=== PATIENT | female | born 1965 | race Caucasian/White ===

== ENCOUNTER 2022-11-19 07:06 | Outpatient (CLI) | payer BC, SELFPAY ==
[2022-11-19 07:44] LABS: Alanine Aminotransferase 37 U/L (6-35); Albumin Level 4.5 g/dL (3.5-5.1); Alkaline Phosphatase 61 U/L (38-126); Anion Gap 8 mmol/L (8-16); Aspartate Amino Transferase 30 U/L (14-36); Bilirubin,Total 1.2 mg/dL (0.2-1.3); Blood Urea Nitrogen 13 mg/dL (7-17); Calcium 9.3 mg/dL (8.4-10.2); Carbon Dioxide 27 mmol/L (22-30); Chloride 105 mmol/L (98-107); Cholesterol 254 mg/dL (0-200); Estimated Glomerular Filt Rate > 60; Glucose 112 mg/dL (65-110); HDL Direct 55 mg/dL; Potassium 3.6 mmol/L (3.4-5.0); Sodium 140 mmol/L (137-145); Triglycerides 181 mg/dL (<150)
[2022-11-19 07:49] LABS: Hematocrit 40.9 % (37.0-47.0); Hemoglobin 13.7 g/dL (12.0-15.0); Mean Corpuscular HGB Conc 33.5 g/dl (32-36); Mean Corpuscular Hemoglobin 29.7 pg (26-34); Mean Corpuscular Volume 88.7 fl (80-100); Mean Platelet Volume 9.8 fl (7.4-10.4); Platelet Count Result 274 k/mm3 (150-375); Red Blood Count 4.61 M/mm3 (4.2-5.4); White Blood Count 5.2 K/mm3 (4.5-10.0)
[2022-11-19 07:55] LABS: LDL Cholesterol Direct 155 mg/dL
[2022-11-19 08:14] LABS: Free T4 Free Thyroxine 0.95 ng/mL (0.78-2.19)
== END 2022-11-19 07:07 | disposition home or self-care (01) ==
PROVIDERS: PCP Family Medicine; Visit Provider Family Medicine
DX: E03.9 Hypothyroidism, unspecified (principal); E78.5 Hyperlipidemia, unspecified; Z13.220 Encounter for screening for lipoid disorders; I10 Essential (primary) hypertension
CPT/HCPCS: 36415; 80048; 80061; 80076; 84439; 84443; 85027

== ENCOUNTER → 2023-01-17 08:34 | Outpatient (CLI) | payer BC, SELFPAY ==
--- NOTE | ~2023-01-17 | XR_ITS ---
EXAMINATION: XR hip LT 2V w AP pelvis DATE: 01/17/2023 08:55 INDICATION: Left hip pain. TECHNIQUE: An anteroposterior view of the pelvis and 2 views of left hip were obtained. COMPARISON: None. FINDINGS: There is a total right hip arthroplasty in near-anatomic alignment. No periprosthetic lucen cy to suggest loosening or infection. No fracture. There is moderate left hip osteoarthritis. There i s moderate lumbar spondylosis. IMPRESSION: 1. Moderate left hip osteoarthritis. 2. Total right hip arthroplasty in near-anatomic alignment. Reviewed, dictated and finalized at location A.
== END ==
PROVIDERS: PCP Family Medicine; Visit Provider Nurse Practitioner Family
DX: M16.12 Unilateral primary osteoarthritis, left hip (principal)
CPT/HCPCS: 73502

== ENCOUNTER 2023-01-20 02:40 | Day surgery (SDC) | payer BC, SELFPAY ==
[2023-01-04 13:51] VITALS: BMI 43.9
[2023-01-20 06:25] VITALS: BP 137/80; PULSE 67; RESP 20; TEMP 36.3; O2SAT 98; BMI 41.8
[2023-01-20] MEDS: LACTATED RINGERS 1,000 ML 150 ML IV CONT (06:31)
[2023-01-20 07:59] VITALS: BP 123/77; PULSE 72; RESP 16; O2SAT 96
--- NOTE | 2023-01-20 08:01 | PM.HPGS ---
History of Present Illness History of Present Illness Consent: Risks, benefits, and alternatives have been discussed and questions answered. Patient agrees to proceed with procedure. Chief complaint: neoplasm screening Narrative: Shruti Murcia is a 57 year old female Presents for screening colonoscopy. Patient has current weight appetite bowel movements appear normal. Patient desires neoplasia screening. Family history noncontributory. Review of Systems Review of Systems: Review of systems noncontributory. [facility] Past Medical History Medical History (Updated 01/20/23 @ 08:02 by Eliecer Garsia MD) Abnormal mouth sensation Acute arthritis BMI 40.0-44.9, adult Essential hypertension Hyperlipidemia Hypertension Hypothyroidism (acquired) Sacroiliitis Sleep apnea treated with continuous positive airway pressure (CPAP) Thyroid disorder Surgical History Surgical History H/O: hysterectomy History of hip surgery Hx of shoulder surgery S/P hernia surgery Family History Family History Son ADD (attention deficit disorder) Father Acute myocardial infarction Carcinoma of colon Hypertension Heart disease Colon cancer Acute alcohol abuse Mother Lung cancer COPD (chronic obstructive pulmonary disease) Thyroid condition Hypertension Sibling Lung cancer Social History Social History Smoking status: Never smoker Alcohol intake: current Alcohol use details: occasional Substance use: never Substance use type: does not use Lack of Transportation: No Lack of Food: Never True Current Housing: I Have Housing Concerned About Future Housing: No Difficulty Paying Gas/Electric Bills: No Difficulty Paying for Meds: No Currently Unemployed: No Education: Decline to Answer Difficulty w/ Childcare or Family Care: No Living arrangements: with family Spiritual care concerns: No Meds Home Medications and Allergies Home Medications Medication Instructions Recorded Confirmed Type cyclobenzaprine 10 mg tablet 10 mg PO TID 08/17/22 01/04/23 History atorvastatin 10 mg tablet 10 mg PO DAILY 11/15/22 01/04/23 History ibuprofen 600 mg tablet 600 mg PO Q6H PRN Pain 11/15/22 01/04/23 History levothyroxine 50 mcg tablet 50 mcg PO DAILY 11/15/22 01/04/23 History lidocaine 5 % topical patch 1 patch topical DAILY 11/15/22 01/04/23 History lisinopril 20 1 tablet PO DAILY #90 tabs 11/15/22 01/04/23 Rx mg-hydrochlorothiazide 12.5 mg tablet omega-3 fatty acids 1,000 mg 1,000 mg PO DAILY 11/15/22 01/04/23 History capsule turmeric root extract 500 mg 500 mg PO DAILY 11/15/22 01/04/23 History capsule Allergies Allergy/AdvReac Type Severity Reaction Status Date / Time Sulfa (Sulfonamide Allergy Mild Unknown Verified 01/20/23 06:22 Antibiotics) IV Dye Allergy Mild Unknown Uncoded 01/20/23 06:22 Vital Signs Vital Signs - 24 hr 01/20/23 06:25 Temperature 97.4 F L Pulse Rate 67 Respiratory Rate 20 Blood Pressure 137/80 Pulse Oximetry 98 Oxygen Delivery Room Air Exam Narrative: Physical exam reveals patient to be alert. Vital signs stable. HEENT exam is unremarkable. Patient is anicteric. Lungs are clear to auscultation and percussion. Heart is without murmur or extra sounds. Abdomen bowel sounds are present soft nontender with no organomegaly. Digital external rectal exam is normal. Assessment and Plan Assessment and plan (1) Encounter for screening colonoscopy: Code(s): Z12.11 - Encounter for screening for malignant neoplasm of colon Status: Acute Assessment and Plan: Patient presents today for screening colonoscopy. Further recommendations will be given after endoscopy.
[2023-01-20 08:09] VITALS: BP 132/66; PULSE 70; RESP 18; O2SAT 97
[2023-01-20 08:19] VITALS: BP 138/78; PULSE 58; RESP 18; O2SAT 97
== END 2023-01-20 08:31 | disposition home or self-care (01) ==
PROVIDERS: PCP Family Medicine; Visit Provider Internal Medicine Gastroenterology
PROC: 0DJD8ZZ Inspection of Lower Intestinal Tract, Via Natural or Artificial Opening Endoscopic (ICD-10-PCS; CPT 45378; principal; 2023-01-20 07:30)
DX: Z12.11 Encounter for screening for malignant neoplasm of colon (principal); D12.4 Benign neoplasm of descending colon; D12.5 Benign neoplasm of sigmoid colon; K63.5 Polyp of colon; K64.8 Other hemorrhoids; I10 Essential (primary) hypertension; E78.5 Hyperlipidemia, unspecified; E03.9 Hypothyroidism, unspecified; G47.33 Obstructive sleep apnea (adult) (pediatric)
CPT/HCPCS: 45385; 88305; J2704; J7120

== ENCOUNTER 2023-03-28 13:58 | Outpatient (CLI) | payer BC, SELFPAY ==
--- NOTE | ~2023-03-28 | XR_ITS ---
EXAMINATION: XR chest 2V 03/28/2023 14:09 INDICATION: Cough PROCEDURE: 2 view chest COMPARISON: No prior studies for comparison. FINDINGS: The lungs are clear. The cardiomediastinal silhouette is within normal limits. There are no pleural effusions. There is no pneumothorax suspected. IMPRESSION: 1: NO ACUTE CARDIOPULMONARY DISEASE. Reviewed, dictated and finalized at location B.
== END 2023-03-28 13:59 | disposition home or self-care (01) ==
LOC: ANHIMG 14:00
PROVIDERS: PCP Family Medicine; Visit Provider Nurse Practitioner Family
DX: J06.9 Acute upper respiratory infection, unspecified (principal); R05.9 Cough, unspecified
CPT/HCPCS: 71046

== ENCOUNTER 2023-05-24 07:45 | Outpatient (CLI) | payer BC, SELFPAY ==
[2023-05-24 09:58] LABS: Free T4 Free Thyroxine 1.27 ng/mL (0.78-2.19)
== END 2023-05-24 07:46 | disposition home or self-care (01) ==
LOC: ANHLAB 07:46
PROVIDERS: PCP Family Medicine; Visit Provider Family Medicine
DX: E03.9 Hypothyroidism, unspecified (principal); M35.01 Sjogren syndrome with keratoconjunctivitis
CPT/HCPCS: 36415; 84439; 84443; 86038

== ENCOUNTER 2023-09-22 12:33 | Outpatient (CLI) | payer BC, SELFPAY ==
--- NOTE | ~2023-09-22 | MM_ITS ---
EXAMINATION: MM screening carmelo BI w vidya HISTORY: Screening mammogram TECHNIQUE: Craniocaudal and mediolateral oblique 3-D tomosynthesis images were obtained and synthetic 2-D images were generated. CAD analysis was submitted and interpreted. COMPARISON: No prior mammogram is available for comparison at this institution. BREAST PARENCHYMAL COMPOSITION: There are scattered areas of fibroglandular density. FINDINGS: There is no evidence of suspicious mass, calcification, or architectural distortion to sugg est malignancy in either breast. There has been no suspicious interval change. IMPRESSION: 1. No mammographic evidence of malignancy. 2. Recommend routine screening mammography in one year. BI-RADS Category 1: Negative Reviewed, dictated and finalized at location A. SERVICE TECHNICIAN
== END 2023-09-22 12:34 ==
LOC: MICIMG 12:34
PROVIDERS: PCP Family Medicine; Visit Provider Family Medicine
DX: Z12.31 Encounter for screening mammogram for malignant neoplasm of breast (principal)
CPT/HCPCS: 77063; 77067

== ENCOUNTER 2023-10-28 06:35 | Outpatient (CLI) | payer BC, SELFPAY ==
--- NOTE | ~2023-10-28 | MR_ITS ---
EXAMINATION: MR lumbar spine wo con DATE: 10/28/2023 07:28 INDICATION: Sided low back pain at the sacroiliac joint. TECHNIQUE: Magnetic resonance imaging (MRI) of the lumbar spine was performed without intravenous con trast. Sequences included sagittal T2-weighted FSE, sagittal T2-weighted FS FSE, sagittal T1-weighted FSE, and axial T2-weighted FSE. COMPARISON: None FINDINGS: 8 mm lumbar levocurvature. 3 mm anterolisthesis L4 on L5 and 4 mm retrolisthesis L4 on L5. Mild likel y physiologic anterior wedging at T12 and L1. There are a few scattered small Schmorl's nodes in the lower thoracic and upper lumbar spine. T1 and T2 hyperintense hemangioma at L2. Marrow signal is othe rwise normal. Mild disc height loss at T11-T12 through L5-S1 relatively sparing L2-L3. The conus medu llaris terminates at L2. There is normal signal in the caudal spinal cord. 1.8 cm right renal cyst. P aravertebral soft tissues are otherwise unremarkable. The following disc levels are specifically disc ussed: T12-L1: The disc does not extend beyond the endplate margin. There is moderate bilateral facet joint osteoarthritis. There is no neural foraminal stenosis. There is no central canal stenosis. L1-L2: Disc is mildly bulging. There is moderate bilateral facet joint osteoarthritis. There is mild bilateral neural foraminal stenosis. There is minimal central canal stenosis. L2-L3: The disc does not extend beyond the endplate margin. There is mild to moderate bilateral facet joint osteoarthritis. There is no neural foraminal stenosis. There is no central canal stenosis. L3-L4: Disc is mildly bulging. There is moderate right and moderate to severe left facet joint osteoa rthritis. There is mild to moderate bilateral neural foraminal stenosis. There is mild central canal stenosis. L4-L5: Disc is bulging. There is severe bilateral facet joint osteoarthritis. There is moderate left and mild to moderate right neural foraminal stenosis. There is moderate central canal stenosis. L5-S1: Disc is bulging with annular fissure. There is moderate to severe left and mild to moderate ri ght facet joint osteoarthritis. There is moderate left and mild to moderate right neural foraminal st enosis. There is no central canal stenosis. IMPRESSION: 1. Mild to moderate lumbar and lower thoracic spondylosis. Reviewed, dictated and finalized at location B.
== END 2023-10-28 06:36 | disposition home or self-care (01) ==
PROVIDERS: PCP Family Medicine; Visit Provider Nurse Practitioner Family
DX: M47.896 Other spondylosis, lumbar region (principal); M47.894 Other spondylosis, thoracic region
CPT/HCPCS: 72148

== ENCOUNTER 2023-11-10 11:14 | Outpatient (CLI) | payer BC, SELFPAY ==
--- NOTE | ~2023-11-10 | CT_ITS ---
Non-contrast CT scan of the Pelvis Clinical indication: Sacroiliitis Technique: 2.5 mm axial scans were obtained through the pelvis without intravenous or oral contrast. Dose reduction technique was used on this scan by utilizing automated exposure control and iterative reconstruction technique. The dose-length product (DLP) was 971.12 mGy-cm. Findings: There is mild to moderate osteoarthritic change of the SI joints bilaterally. No erosive ch sergio or sclerotic change identified. Right hip arthroplasty in place, without evidence of hardware co mplication. There is moderate osteoarthritic change of the left hip joint, with chondral thinning pro bably present and mild bony productive changes. Visualized bowel loops are unremarkable. No pelvic lymphadenopathy seen. Urinary bladder grossly unre markable. No pelvic soft tissue mass seen. Visualized musculature unremarkable. Impression: No evidence for erosive arthropathy involving the SI joints. No erosive change or sclerotic change se en. Consider MR for more sensitive evaluation for very early changes of sacroiliitis, as indicated. Mild to moderate osteoarthritic change of the SI joints and left hip joint. Right hip arthroplasty in place. Reviewed, dictated and finalized at location . Impression: No evidence for erosive arthropathy involving the SI joints. No erosive change or sclerotic change seen. Consider MR for more sensitive evaluation for very ea rly changes of sacroiliitis, as indicated. Mild to moderate osteoarthritic change of the SI joints and left hip joint. Right hip arthroplasty in place.
== END 2023-11-10 11:15 | disposition home or self-care (01) ==
PROVIDERS: PCP Family Medicine; Visit Provider Physician Assistant
DX: M46.1 Sacroiliitis, not elsewhere classified (principal); Z96.641 Presence of right artificial hip joint
CPT/HCPCS: 72192

== ENCOUNTER 2023-12-01 07:00 | Outpatient (CLI) | payer BC, SELFPAY ==
[2023-12-01 07:32] LABS: Hematocrit 43.8 % (37.0-47.0); Hemoglobin 14.7 g/dL (12.0-15.0); Mean Corpuscular HGB Conc 33.6 g/dl (32-36); Mean Corpuscular Hemoglobin 29.5 pg (26-34); Mean Platelet Volume 9.7 fl (7.4-10.4); Platelet Count Result 279 k/mm3 (150-375); Red Blood Count 4.98 M/mm3 (4.2-5.4); Red Cell Distribution Width 12.7 % (11.5-14.5)
[2023-12-01 07:47] LABS: Alanine Aminotransferase 20 U/L (6-35); Albumin Level 4.5 g/dL (3.5-5.1); Alkaline Phosphatase 75 U/L (38-126); Anion Gap 9 mmol/L (4-12); Aspartate Amino Transferase 22 U/L (14-36); Bilirubin,Total 1.7 mg/dL (0.2-1.3); Blood Urea Nitrogen 14 mg/dL (7-17); Calcium 9.5 mg/dL (8.4-10.2); Carbon Dioxide 24 mmol/L (22-30); Chloride 105 mmol/L (98-107); Estimated Glomerular Filt Rate > 60; Glucose 112 mg/dL (65-110); Potassium 3.5 mmol/L (3.4-5.0); Sodium 138 mmol/L (137-145)
[2023-12-01 07:58] LABS: Erythrocyte Sedimentation Rate 15 mm/hr (0-20)
[2023-12-01 08:17] LABS: Free T4 Free Thyroxine 1.34 ng/mL (0.78-2.19)
[2023-12-01 08:46] LABS: HAV RESULT Negative (Negative); Hepatitis B Core IgM Result Negative (Negative); Hepatitis B Surface Antigen Negative (Negative)
[2023-12-01 08:52] LABS: Hepatitis C Virus Antibody Negative (Negative)
[2023-12-02 16:24] LABS: CRP, High Sensitivity 5.2 mg/L
== END 2023-12-01 07:01 | disposition home or self-care (01) ==
PROVIDERS: PCP Family Medicine; Visit Provider Family Medicine
DX: E03.9 Hypothyroidism, unspecified (principal); I10 Essential (primary) hypertension; R74.8 Abnormal levels of other serum enzymes; M46.1 Sacroiliitis, not elsewhere classified
CPT/HCPCS: 36415; 80048; 80074; 80076; 84439; 84443; 85027; 85652; 86141

== ENCOUNTER 2024-02-22 16:31 | Emergency (ER) | payer BC, SELFPAY ==
--- NOTE | ~2024-02-22 | XR_ITS ---
XR chest 2V Ordering provider: Aimee Bailey PA-C History: 58 years Female with . shortness of breath . Comparison: March 28, 2023 FINDINGS: MEDIASTINUM: The cardiac silhouette is not enlarged. LUNGS: No infiltrates, effusions or pneumothorax. OTHER: No free air under the diaphragm. Degenerative changes of the spine. IMPRESSION: No acute cardiopulmonary pathology. Reviewed, dictated and finalized at location A.
[2024-02-22 16:34] VITALS: BP 168/83; PULSE 94; RESP 18; TEMP 37; O2SAT 97
--- NOTE | 2024-02-22 17:35 | ECG_ITS ---
Test Date: 2024-02-22 17:56:53 Measurements Intervals [place] Rate: 80 P: 69 [place]: 173 QRS: 49 QRSD: 98 T: 56 QT: 381 QTc: 441 Interpretive Statements SINUS RHYTHM NORMAL ELECTROCARDIOGRAM No previous ECG available for comparison Electronically Signed On 02-23-2024 07:12:00 CDT by Jorge Marques M.D.
--- NOTE | 2024-02-22 17:36 | ED.URI ---
HPI - URI/Sore Throat General Chief Complaint: Upper Respiratory Infection Stated Complaint: COVID+, possible pneumonia Time Seen by Provider: 02/22/24 17:28 History of Present Illness HPI Narrative: 58-year-old female with a history of hypertension, hyperlipidemia and YUN presents to emergency department for shallow breathing. Patient states she began having URI symptoms 5 days ago. States she went to urgent care 3 days ago and tested positive for influenza and COVID. She was sent home with Paxlovid, steroids, Tessalon Perles and [place]. Patient states her symptoms improved a day later, however have worsened again. She states she contacted her PCP's office and was advised to come to the ED for further evaluation. She states she feels bubbling in her chest when she breathes and is reporting a productive cough. She states she feels like she is not taking a full deep breath. She denies chest pain, lower extremity edema, abdominal pain. She is endorsing some nausea, headache and minimal diarrhea. Denies vomiting and known fever. denies prior history of VTE, recent surgeries or hospitalizations. Denies smoking or history of COPD or asthma. Related Data Home Medications Medication Instructions Recorded Confirmed atorvastatin 10 mg tablet 10 mg PO DAILY 11/15/22 11/21/23 lidocaine 5 % topical patch 1 patch topical DAILY PRN 03/17/23 11/21/23 Allergies Allergy/AdvReac Type Severity Reaction Status Date / Time Iodinated Contrast Media Allergy Mild Rash Verified 02/22/24 16:32 Sulfa (Sulfonamide Allergy Mild Unknown Verified 02/22/24 16:32 Antibiotics) Review of Systems Review of Systems: All systems reviewed & are unremarkable except as noted in HPI and below [facility] Past Medical History Medical History Abnormal mouth sensation Acute arthritis BMI 38.0-38.9,adult BMI 40.0-44.9, adult Essential hypertension Hyperlipidemia Hypertension Hypothyroidism (acquired) Sacroiliitis Sleep apnea treated with continuous positive airway pressure (CPAP) Thyroid disorder Surgical History Surgical History H/O: hysterectomy History of hip surgery Hx of shoulder surgery S/P hernia surgery Family History Family History Son ADD (attention deficit disorder) Father Acute myocardial infarction Carcinoma of colon Hypertension Heart disease Colon cancer Acute alcohol abuse Mother Lung cancer COPD (chronic obstructive pulmonary disease) Thyroid condition Hypertension Sibling Lung cancer Sibling Malignant neoplasm of prostate Social History Social History Smoking status: Never smoker Second hand tobacco smoke exposure: Yes Alcohol intake: current Alcohol use details: occasional; 1 drink per month Substance use: never Substance use type: does not use Do You Feel Safe in your Home?: Yes Lack of Transportation: No Lack of Food: Never True Current Housing: I Have Housing Concerned About Future Housing: No Difficulty Paying Gas/Electric Bills: No Difficulty Paying for Meds: No Currently Unemployed: No Education: Associate Degree Difficulty w/ Childcare or Family Care: No Living arrangements: with family Occupation/Education: occupation 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 Gender identity (if verbalized by the patient): Female Spiritual care concerns: No Exam Narrative: GENERAL: Well-appearing, well-nourished, and in no acute distress. HEAD: Normocephalic, atraumatic. EYES: PERRLA and EOMI. ENT: Nares clear, no rhinorrhea or epistaxis. Mucous membranes moist. NECK: Supple. CHEST: Clear to auscultation. No respiratory distress. Satting 97% on room air in no respir
[2024-02-22 17:59] LABS: Basophils Percent Auto 0.2 % (0.2-1.2); Eosinophils Percent Auto 0.2 % (0-4.4); Hematocrit 42.3 % (37.0-47.0); Hemoglobin 14.1 g/dL (12.0-15.0); Immature Granulocyte Absolute 0.05 K/mm3 (0.00-0.031); Immature Granulocyte Percent A 0.3 % (0-0.5); Lymphocytes Absolute Auto 1.66 K/mm3 (0.9-3.2); Lymphocytes Percent Auto 9.9 % (18.3-44.2); Mean Corpuscular HGB Conc 33.3 g/dl (32-36); Mean Corpuscular Hemoglobin 29.4 pg (26-34); Mean Corpuscular Volume 88.3 fl (80-100); Mean Platelet Volume 9.5 fl (7.4-10.4); Monocytes Absolute Auto 0.9 K/mm3 (0.1-0.6); Monocytes Percent Auto 5.2 % (2.6-8.5); Neutrophils Absolute Auto 14.2 K/mm3 (1.3-6.7); Neutrophils Percent Auto 84.2 % (45.5-73.1); Platelet Count Result 262 k/mm3 (150-375); Red Blood Count 4.79 M/mm3 (4.2-5.4); Red Cell Distribution Width 12.9 % (11.5-14.5); White Blood Count 16.8 K/mm3 (4.5-10.0)
[2024-02-22 18:02] VITALS: BP 194/101; PULSE 86; RESP 16; O2SAT 96
[2024-02-22 18:09] LABS: Alanine Aminotransferase 20 U/L (6-35); Albumin Level 4.2 g/dL (3.5-5.1); Alkaline Phosphatase 68 U/L (38-126); Anion Gap 12 mmol/L (4-12); Aspartate Amino Transferase 20 U/L (14-36); Bilirubin,Total 0.9 mg/dL (0.2-1.3); Blood Urea Nitrogen 13 mg/dL (7-17); Calcium 8.9 mg/dL (8.4-10.2); Carbon Dioxide 28 mmol/L (22-30); Chloride 101 mmol/L (98-107); Estimated CRCL calculation 98 ml/min; Estimated Glomerular Filt Rate > 60; Glucose 107 mg/dL (65-110); Magnesium 1.9 mg/dL (1.6-2.3); Potassium 3.5 mmol/L (3.4-5.0); Sodium 141 mmol/L (137-145)
[2024-02-22 18:20] LABS: NT Pro B Type Natriuretic Pept 430 pg/mL (19.9-100); Prothrombin Time 13.3 Seconds (11.1-14.7); Troponin I < 0.012 ng/mL (0.000-0.034)
[2024-02-22 18:21] LABS: Partial Thromboplastin Time 25.2 Seconds (22.3-36.8)
[2024-02-22 18:30] VITALS: BP 190/99; PULSE 80; RESP 16; O2SAT 96
[2024-02-22 18:34] LABS: D Dimer 0.31 ug/mL (<0.48)
[2024-02-22 19:09] LABS: Add Urine Microscopic? YES; Appearance Urine Clear (Clear); Bacteria Urine None Seen /hpf; Bilirubin Urine Negative (Negative); Blood Urine Negative (Negative); Color Urine Yellow (Yellow); Glucose Urine UA Negative (Negative); Ketones Urine Negative (Negative); Leukocyte Esterase Ur Trace LEU/UL (Negative); Nitrate Urine Negative (Negative); Non Pathogenic Casts 0-2; Protein Urine Negative (Negative); RBC Urine 0-2 /hpf (0-2); Specific Grav Ur 1.005 (1.001-1.035); Squamous Epithelial Cell Urine None Seen /hpf (Few); Urobilinogen Urine 0.2 mg/dL (<2.0); WBC Urine 0-5 /hpf (0-3); pH Urine 7.5 (5.0-9.0)
[2024-02-22 19:54] VITALS: BP 186/72; PULSE 87; RESP 16; O2SAT 96
== END 2024-02-22 20:22 | disposition home or self-care (01) ==
PROVIDERS: Emergency Provider Physician Assistant; PCP Family Medicine
DX: U07.1 COVID-19 (principal); J11.1 Influenza due to unidentified influenza virus with other respiratory manifestations; I10 Essential (primary) hypertension; E78.5 Hyperlipidemia, unspecified; E03.9 Hypothyroidism, unspecified; G47.30 Sleep apnea, unspecified; Z90.710 Acquired absence of both cervix and uterus; Z77.22 Contact with and (suspected) exposure to environmental tobacco smoke (acute) (chronic)
CPT/HCPCS: 36415; 71046; 80053; 81001; 83735; 83880; 84484; 85025; 85380; 85610; 85730; 93005; 99284

== ENCOUNTER 2024-05-14 08:50 | Outpatient (CLI) | payer BC, SELFPAY ==
--- NOTE | ~2024-05-14 | XR_ITS ---
Clinical Indication: Shortness of breath PA and lateral views of the chest: Comparison: 02/22/2024 Findings: The lungs are clear, without evidence of focal consolidation or pleural effusion. Cardiome diastinal silhouette is within normal limits. Bones and soft tissues are unremarkable. Impression: Normal chest. Reviewed, dictated and finalized at location . Impression: Normal chest.
[2024-05-14 09:29] LABS: Hematocrit 42.2 % (37.0-47.0); Hemoglobin 13.6 g/dL (12.0-15.0); Mean Corpuscular HGB Conc 32.2 g/dl (32-36); Mean Corpuscular Hemoglobin 28.8 pg (26-34); Mean Corpuscular Volume 89.4 fl (80-100); Mean Platelet Volume 9.5 fl (7.4-10.4); Platelet Count Result 274 k/mm3 (150-375); Red Blood Count 4.72 M/mm3 (4.2-5.4); Red Cell Distribution Width 12.8 % (11.5-14.5); White Blood Count 5.9 K/mm3 (4.5-10.0)
[2024-05-14 09:44] LABS: Alanine Aminotransferase 16 U/L (6-35); Albumin Level 4.1 g/dL (3.5-5.1); Alkaline Phosphatase 63 U/L (38-126); Anion Gap 6 mmol/L (4-12); Aspartate Amino Transferase 19 U/L (14-36); Bilirubin,Total 0.7 mg/dL (0.2-1.3); Blood Urea Nitrogen 12 mg/dL (7-17); Calcium 9.1 mg/dL (8.4-10.2); Carbon Dioxide 30 mmol/L (22-30); Chloride 105 mmol/L (98-107); Cholesterol 262 mg/dL (0-200); Estimated Glomerular Filt Rate > 60; Glucose 101 mg/dL (65-110); HDL Direct 63 mg/dL; Potassium 3.8 mmol/L (3.4-5.0); Sodium 141 mmol/L (137-145); Triglycerides 133 mg/dL (<150)
[2024-05-14 10:02] LABS: LDL Cholesterol Direct 150 mg/dL
[2024-05-14 10:35] LABS: Thyroid Stimulating Hormone 0.566 uIU/mL (0.465-4.680)
== END 2024-05-14 08:51 | disposition home or self-care (01) ==
PROVIDERS: PCP Family Medicine; Visit Provider Nurse Practitioner Family
DX: R06.02 Shortness of breath (principal); E03.9 Hypothyroidism, unspecified; E78.5 Hyperlipidemia, unspecified; F41.9 Anxiety disorder, unspecified; I10 Essential (primary) hypertension; R74.8 Abnormal levels of other serum enzymes; E55.9 Vitamin D deficiency, unspecified
CPT/HCPCS: 36415; 71046; 80053; 80061; 82306; 84439; 84443; 85027

== ENCOUNTER 2024-05-28 14:30 | Outpatient (CLI) | payer BC, SELFPAY | END 2024-05-28 14:31 | disposition home or self-care (01) | LOC: ANHPFT 14:31 | PROVIDERS: PCP Family Medicine; Visit Provider Family Medicine | DX: R06.02 Shortness of breath (principal) | CPT/HCPCS: 94060; 94726; 94729 ==

== ENCOUNTER 2024-07-09 09:00 | Outpatient (RCR) | payer BC, SELFPAY ==
--- NOTE | 2024-06-06 12:11 | OPREHPOC ---
Outpatient Therapy Plan of Care This is a Multidisciplinary Plan of Care that may contain components documented by all disciplines (PT, OT, and ST.) PT Problem 1 PT Problem #1 Knowledge Deficit PT Goal 1 Goal / Goal Update *indep with HEP * pt use correct body mechanics with lifting from floor Target Visit 8 PT Problem 2 PT Problem #2 Pain PT Goal 1 Goal / Goal Update 1* pt report pain rating at the worst of 2/10 with increased activity level 2* self assessment Oswestry rating of 30% limitation in activity level 3* pt report sitting tolerance of 45 minutes without pain increase Target Visit 8 PT Problem 3 PT Problem #3 Impaired Strength PT Goal 1 Goal / Goal Update increase strength of trunk and hips to stabilize lumbar-sacral spine 1* pt perform 20 reps of mat strengthening exercises R and L 2* pt perform 20 reps of sitting ball exercises. Target Visit 8 PT Problem 4 PT Problem #4 Impaired Flexibility PT Goal 1 Goal / Goal Update increase flexibility of hips to improve mobility 1* supine R piriformis stretch--R knee to midline of body anterior hip/quad length with prone knee flexion 2* R 110' 3* L 110' Target Visit 8
--- NOTE | 2024-06-06 12:11 | PTOPEVAL1 ---
Assessment and note entered by Mayela Cross, PT Evaluation Information Assessment Status Evaluation ICD-10 Condition Codes (PT) Pain in low back M54.50 Other ICD-10 Condition Codes ( M46.1 sacroilitis; G 89.25 chronic pain PT) Onset about 2 years ago Subjective Information chronic pain in back and SI; increased with moving 2 years ago; get injections into back/ sacrum every 3-4 months; had R SI injection 04-24-24- really decreased her pain, is better than has been in years; have consulted with neurosurgeon Dr Ayala and have discussed surgery for SI fusion; want to try and avoid surgery; Activity: home with ; have infant 20# grand daughter- lift some, but cautious; have not been doing walking for fitness in the past 3 months due to pain- was 20-25 minutes; Reported Pain Level Pain Score 0: Self Report Additional Pain Score Comments pain range in the past week 0-2/10; knife stabbing on R SIJ; decreased since last sacral injection--best it has been in a long time pain increase with heavy home tasks- vacuum, sit too long- 30-60 minutes decrease pain: take muscle relaxer PRN, home stim, heat, ice, SI belt is now able to sleep without awakening due to pain does do some stretching and back exercises from previous PT Assessment PT Clinical Summary Shruti has the diagnosis of LBP, chronic pain, sacriilitis. Her medical history includes R THR in 2019, chronic pain in back and sacrum, receives injections regularly. The last injection has decreased her pain the most-- this is the least pain she has had in a long time. She is also under the care of a neurosurgeon and surgery has been discussed--R SI fusion. She has had multiple rounds of PT in the past, but has never had aquatic therapy. With the evaluation: self assessment Oswestry rating of 40% limitation in activity level; tightness over R and L anterior hip/quad muscles and R piriformis; decreased strength of trunk and hips, 2 minute walking test distance of 425' with pain increase. Skilled PT services are indicated for aquatic and land exercises to increase strength and flexibility, modalities for pain control and education for HEP, body mechanics. Plan of Care Interventions Aquatic Therapy,Hot Pack/Cold Pack,Manual Therapy, Mechanical Traction,Neuro Re-education,Patient/ Caregiver Educati,Therapeutic Activities, Therapeutic Exercise,Ultrasound,Other Other Interventions taping PT Services Indicated Yes Treatment Frequency and 2x/wk for 8 visits Duration These treatments will address the objective and functional deficits as defined above. The patient will be advanced safely and appropriately in order for the patient to progress towards his/her prior level of function. Additional exercises will be introduced and as well as a comprehensive home exercise program upon discharge, if needed, ?to ensure carryover of functional gains achieved in the clinic. This treatment plan has been reviewed and agreement upon by the patient.
--- NOTE | 2024-06-29 08:48 | PCPTNOTE ---
Addendum entered by Mayela Cross, PT 06/29/24 09:54: pt was seen for treatment this date: pt was 15 minutes late for appt and able to be seen by another therapist. Original Note: No call No show , reason unknown. DANNA
--- NOTE | 2024-07-09 09:57 | PTOPDC ---
Assessment and note entered by Mayela Cross, PT Assessment Status Discharge ICD-10 Condition Codes (PT) Pain in low back M54.50 Other ICD-10 Condition Codes ( M46.1 sacroilitis; G 89.25 chronic pain PT) Onset about 2 years ago Subjective Information back is best it has felt in years; the stretches and exercises really help; ready to be finished with therapy. Reported Pain Level Pain Score Self Report Additional Pain Score Comments pain range in the past week 0-3/10 decrease pain: stretching; heat or ice; muscle relaxer- PRN increase pain: more activity, home tasks, standing, walking, lifting sitting tolerance 1 hour then have to get up Assessment PT Clinical Summary Shruti has received 6 sessions. Compared to the initial evaluation: pain from 0- 2/10 to 0-3/10; no radicular pain into R LE; sitting tolerance reported from 30-60 minutes to 60 minutes; walking tolerance reported 30 minutes; self assessment Oswestry rating from 40 to 24% limitation in activity level; increase flexibility of R piriformis and bilateral anterior hip/quad length; increase strength of hips and trunk; education for HEP, posture and back care. The goals were achieved, except pain rating at worst. Discharge PT services. She is to continue with the HEP and monitor posture. Plan of Care PT Services Indicated No
== END 2024-07-09 16:24 | disposition home or self-care (01) ==
LOC: ANHPT 09:00
PROVIDERS: PCP Family Medicine; Visit Provider Family Medicine
DX: M54.50 Low back pain, unspecified (principal); G89.29 Other chronic pain; M47.816 Spondylosis without myelopathy or radiculopathy, lumbar region; M46.1 Sacroiliitis, not elsewhere classified
CPT/HCPCS: 97014; 97110; 97140; 97161; 97530; G0283

== ENCOUNTER 2024-08-27 14:04 | Outpatient (CLI) | payer BC, SELFPAY ==
--- NOTE | ~2024-08-27 | XR_ITS ---
Clinical Indication: Shortness of breath PA and lateral views of the chest: Comparison: 05/14/2024 Findings: The lungs are clear, without evidence of focal consolidation or pleural effusion. Cardiome diastinal silhouette is within normal limits. Bones and soft tissues are unremarkable. Impression: Normal chest. Reviewed, dictated and finalized at [facility]. LANE FLIGHT ATTENDANT Impression: Normal chest.
--- OUTSIDE RECORDS SUMMARY | 2024-08-27 14:21 | XMS_ITS | Continuity of Care Document ---
Author Organization [facility] Address [address] [place] [address] Phone Care Team Providers Care Punch Card Operator Name Role Phone No Information Unavailable Unavailable Medications Medication Instructions Dosage Effective Dates (start - stop) Status Comments No Drug Therapy Prescribed Advance Directives Directive Yes / No Effective Date File Name No Information Encounters Encounter Description Practice Location Reason(s) For Visit Diagnoses Date Provider Providers Copied on Encounter [facility], [address] [place] [address], [id number], [place] tel:[phone] No Information No Information Family History Family [...]
--- OUTSIDE RECORDS SUMMARY | 2024-08-27 14:21 | XMS_ITS | Continuity of Care Document ---
Author Organization [facility], L TD Address [address] [place] [address] Phone Care Team Providers Care Sports Team Manager Name Role Phone Shekhar Cuellar OD [...] Diagnoses Date Provider Providers Copied on Encounter [facility], [facility], [facility] [place], [place], [id number] , [place] tel: [phone] [facility] No Information 2 Polo Perezwn. [address] [place], [place], [id number] , [place]. tel: [phone] [facility], [facility], [address] [place], [place], [id number] , [place] tel:[phone] [facility] no problems with vision and no complaints (chief complaint)1 (chief complaint)no problems with vision and no complaints (chief complaint)1 (chief complaint) Hypermetropia, bilateralRegular astigmatism, bilateralPresbyopia Strabismic amblyopia, left eye Mar-2 2 Polo Corrigan. [address] [place] [address], [id number] , [place]. tel: [phone] Referring Provider: Shekhar Ferrer, [address] [place] [address], [id number] . tel:[phone] [facility], [address] [place] [address], [id number] , tel: [phone] [facility] blurry vision (chief complaint)bl urry vision (chief complaint) Hypermetropia, bilateralPresbyopia Regular astigmatism, bilateralStrabismic amblyopia, left eyeAge-related nuclear cataract, bilateral Nov-0 1 Polo Corrigan. [address] [place] [address], [id number] , [place]. tel: [phone] [facility], [address] [place] [address], [id number] , [facility]: [phone] [facility] not quite as clear (chief complaint)vi nasima not quite as clear (chief complaint) Hypermetropia, bilateralPresbyopia Regular astigmatism, bilateral Dec-3 0 Polo Corrigan. [address] [place] [address], [id number] , [place]. tel: [phone] [facility], [address] [place] [address], [id number] , tel: [phone] [facility] decreased vision (chief complaint)de creased vision (chief complaint) Hypermetropia, bilateralPresbyopia Regular astigmatism, bilateralUnspecifie d amblyopia, right eyeEncounter for examination of eyes and vision without abnormal findingsDry eye syndrome of bilateral lacrimal glands 9 Polo Shekhar. [address] [facility], [place], [place], [id number] , [place]. tel: [phone] [facility], [address] [facility], [place], [id number] , [place] tel: [phone] [facility] no change in VA (chief complaint)no change in VA (chief complaint) Hypermetropia, bilateralRegular astigmatism, bilateralPresbyopia Strabismic amblyopia, left eye Apr- 8 Polo Shekhar. [address] [facility], [place], [place], [id number] , [place]. tel: [phone] [facility], [address] [facility], [facility] [place] [id number] , [place] tel: [phone] [facility] decreased vision (chief complaint)de creased vision (chief complaint) Hypermetropia, bilateral Jun- 7 Polo Shekhar. [address] [facility], [place], [id number] , [place]. tel: [phone] [facility], [address] [place] [address], [facility] [place] [id number] , [place] tel: [phone] [facility] No Information 6 Polo Shekhar. [address] [facility], [place], [place], [id number] , [place]. tel: [phone] [facility], [address] [place] [address], [place], [id number] , [place] tel: [phone] [facility] No Information 6 Polo Shekhar. [address] [facility], [place], [id number] , [place]. tel:[phone] [facility], [address] [facility], [place], [id number] , [place] tel: [phone] [facility] blurry vision (chief complaint)bl urry vision (chief complaint) PresbyopiaHypermetr opia, bilateralStrabismic amblyopia, left eye 5 Polo Shekhar. [address] [facility], [place], [id number] , [place]. tel: [phone] [facility], [address] [facility], [facility] [place] [id number] , [place] tel: [phone] [facility] No Information 4 Polo Perezwn. [address] [facility], [facility] [place], [id number] , [place]. tel: [phone] [facility], [address] [place] [address], [facility] [place] [id number] , [place] tel: [phone] [facility] No Information 4 Polo Perezwn. [address] [facility], [facility] [place] [id number] , [place]. tel: [phone] [facility], [address] [place] [address], [facility] [place] [id number] , [place] tel: [phone] [facility] blurry vision (chief complaint)ey e hx (chief complaint)bl urry vision (chief complaint)ey e hx (chief complaint) PresbyopiaDiabetes Mellitus Type 2, Uncomplicated 4 Polo Perezwn. [address] [facility], [facility] [place], [id number] , [place]. tel: [phone] [facility], [address] [place] [address], [facility] [place] [id number] , [place] tel: [phone] [facility] No Information 3 Polomeliza Perezwn. [address] [facility], [place], [id number] , [place]. tel: [phone] [facility], [address] [place] [address], [facility] [place] [id number] , [place] tel: [phone] [facility] blurry vision (chief complaint) Diabetes Mellitus Type 2, UncomplicatedPresby opiaHypermetropiaAm blyopia, unspecifiedOpen angle with borderline glaucoma findings 3 Polo Corrigan. [address] [place] [address], [place], [place], [id number] , [place]. tel: [phone] Referring Provider: Shekhar Ferrer, [address] [place] [address], [place], [address] . tel:[phone] [facility], [address] [place] [address], [place], [place], [id number] , [place] tel: [phone] [facility] No Information 3 Polo Corrigan. [address] [facility], [place], [place], [id number] , [place]. tel: [phone] Referring Provider: Shekhar Ferrer, [address] [place] [address], [place], [address] . tel:[phone] [facility], [address] [place] [address], [place], [place], [id number] , [place] tel: [phone] [facility] No Information 1 Polo Corrigan. [address] [place] [address], [place], [place], [id number] , [place]. tel: [phone] [facility], [address] [place] [address], [place], [place], [id number] , [place] tel: [phone] [facility] Diabetes Examination (chief complaint)La zy eye (chief complaint) Amblyopia, unspecifiedDiabetes Mellitus Type 2, UncomplicatedHyperm etropiaPresbyopia 1 Polo Corrigan. [address] [place] [address], [place], [place], [id number] , [place]. tel: [phone] [facility], [address] [place] [address], [place], [id number] , [place] tel: [phone] [facility] No Information 0 Polo Corrigan. [address] [place], [place], [id number] , [place]. tel: [phone] Family History Family Member Type Diagnosis Age [...] for computer to help with eye strain. Follow up - Return i n 1 year with [facility] for Refract T & D. Follow up - Return i n 1 year with [facility] for Refract T & D. Impression/Plan - Th ere is no Diabetic Retinopathy. Eyes are healthy. No glaucoma or mac degen. OK to use todays MR for new glasses. May benefit from a pair of glasses to use for just the computer since spending so much time every day. Can try artificial tears also for dryness and straining feeling toward the end of the day. - Return in 2 weeks with [facility] for OCT (ON). Pachy tension Related to Open angle with borderline glaucoma findings Diab. Mon. OU. Condi tion: established, stable. [...] Presbyopia - Return in 1 year w daniele K for Ref T & D. Related to Presbyopia Assessments Type Assessment Date No Information Patient Care Teams Name Effective Dates (start - stop) Status Members No Information
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
--- OUTSIDE RECORDS SUMMARY | 2024-08-27 14:21 | XMS_ITS | Clinical Summary ---
Author Organization [facility] Address [address] [place] [address] Care Team Providers Care Supervisor Keymodule Assembly Name Role Phone Abdirizak Dowling APRN, SUPERVISOR CELL MAINTENANCE Primary Care Provider Allergies Active Allergy Reactions Criticality Noted Date Comments Iodine Hives 02/20/2019 Sulfa Antibiotics Hives,Rash 02/20/2019 Medications lisinopril-hydr oCHLOROthiazide (PRINZIDE, ZESTORETIC) 10-12.5 MG Tablet Take 1 Tab by mouth daily. 2 9 Active lidocaine (LIDODERM) 5 % Patch PRN 5 9 Active HYDROcodone-brendon taminophen (NORCO) 5-325 MG Tablet Take 1 Tablet by mouth as needed. 0 9 Active Dana-3 Fatty Acids (FISH OIL) 1000 MG CAPSULE DELAYED RELEASE Take 1,000 mg by mouth as needed. 8 Active ibuprofen (MOTRIN) 600 MG Tablet Take 600 mg by mouth every 8 hours. Active Acetaminophen (TYLENOL PO) Take by mouth. Ac tive cyclobenzaprine (FLEXERIL) 10 MG Tablet TAKE 1 TABLET BY MOUTH EVERY DAY NEEDED FOR SPASM 1 Active Cholecalciferol (VITAMIN D-3 PO) Take by mouth. Activ e Turmeric 500 MG Tablet Take by mouth 2 times daily. Active levothyroxine (SYNTHROID) 50 MCG Tablet Take 50 mcg by mouth daily. Active ATORVASTATIN CALCIUM PO Take by mouth. Acti ve atorvastatin (LIPITOR) 10 MG Tablet TAKE 1 TABLET BY MOUTH EVERY DAY AT BEDTIME 90 Tablet 1 3 Active meloxicam (MOBIC) 15 MG Tablet TAKE 1 TABLET BY MOUTH DAILY 90 Tablet 2 3 Active Additional Information Patient not taking.Reported on 02/17/2024 Active Problems Problem Noted Date Diagnosed Date Chronic right SI joint pain 01/22/2021 Severe obstructive sleep apnea 08/13/2019 Overview (08/13/2019): Diagnosed in June 2019 with an apnea-hypopnea index of 36/hr on home sleep apnea test at 236 lbs with presenting concerns of snoring and excessive daytime sleepiness. auto-titrating CPAP was prescribed at 4-20 cm water pressure that same month. Primary osteoarthritis of both first carpometaca rpal joints 02/20/2019 Immunizations Immunization Administration Dates Next Due Covid-19, Mrna, Lnp-s, PF, 1 00 mcg/0.5 mL Dose (Moderna) 03/01/2021,01/29/2021 Family History Medical History Relation Name Comments Cancer Brother Prostate Cancer Father Colon Cancer Father Congestive Heart Failure Father Heart Attack Father Hypertension Father Other-comment Father night terrors Cancer Mother Lungs High Cholesterol Mother Stroke Mother TIA Thyroid Disease Mother Rheumatoid Arthritis Paternal Aunt 1 Rheumatoid Arthritis Paternal Aunt 2 Rheumatoid Arthritis Paternal Aunt 3 Diabetes Paternal Grandfather Cancer Sister 1 Lung Thyroid Disease Sister 1 Cancer Sister 2 Skin Thyroid Disease Sister 2 Thyroid Disease Sister 3 Relation Name Status Comments Brother Alive Father Mother Paternal Aunt 1 Paternal Aunt 2 Paternal Aunt 3 Paternal Grandfather Sister 1 Sister 2 Alive Sister 3 Social History Tobacco Use Types Packs/Day Years Used Date Smoking Tobacco: Never Smokeless Tobacco: Never Alcohol Use Standard Drinks/Week Comments Yes 0 (1 standard drink = 0.6 oz pur e alcohol) Rare Comments No Sex and Gender Information Value Date Recorded Sex Assigned at Not on file Legal Sex Female 9:36 PM CDT Gender Identity Not on file Sexual Orientation Not on file Last Filed Vital Signs Vital Sign Reading Time Taken Comments Blood Pressure 142/80 02/17/2024 12:59 PM CDT Pulse 81 02/17/2024 12:59 PM CDT Temperature 37 C (98.6 F) 07/21/2022 4:59 PM EYELET ROW MARKER Respiratory Rate 24 07/21/2022 5:44 PM EYELET ROW MARKER Oxygen Saturation 95% 07/21/2022 5:44 PM EYELET ROW MARKER Inhaled Oxygen Concentration - - Weight 101.7 kg (224 lb 3.2 oz) 024 12:59 PM CDT Height 157.5 cm (5' 2 ) 02/17/2024 12:5 9 PM CDT Body Mass Index 41.01 02/17/2024 12:59 PM CDT Plan of Treatment Upcoming Encounters Date Type Department Care Team (Late st Contact Info) Description 02/15/2025 1:00 PM CDT Office Visit [facility] [address] [place] [address] Abdirizak Dowling, MEDICAL COMMUNICATION SPECIALIST, SUPERVISOR CELL MAINTENANCE [address] [place] [address] Discharge Disposition: Discharged to home or Selfcare Health Maintenance Due Date Last Done Comments Hepatitis C Virus (HCV) Screening 1966 TdaP Immunization 1966 Hepatitis B Immunization (1 of 3 - 19+ 3-dose series) 1985 Colonoscopy 2011 Colorectal Cancer Screening 2011 Cologuard 2016 Immunochemical Fecal Occult Blood 2016 Mammogram 2016 Pneumococcal Immunization (5 0+ years) (1 of 1 - PCV) 2016 Zoster Immunization (1 of 2) 2016 Influenza Immunization (#1) 2024 SARS-COV-2 Immunization ( - season) 2024 03/01/2021, 01/29/2021 Respiratory Syncytial Virus (RSV) Immunization (Adult) (1 - 1-dose 75+ series) 2041 Meningococcal Immunization (ACWY) Aged Out No longer eligible b ased on patient's age to complete this topic Rotavirus Immunization Aged Out No lo nger eligible based on patient's age to complete this topic Insurance [facility] Care Teams Supervisor Keymodule Assembly Relationship Specialty Start Date End Date Abdirizak Dowling APRN, SUPERVISOR CELL MAINTENANCE [address] [place] [address] PCP - General Advanced Practice Nurse 02/17/24
== END 2024-08-27 14:05 | disposition home or self-care (01) ==
LOC: ANHLAB 14:07 → ANHIMG 14:07
PROVIDERS: PCP Family Medicine; Visit Provider Physician Assistant Medical
DX: R06.02 Shortness of breath (principal)
CPT/HCPCS: 71046

== ENCOUNTER 2024-10-01 07:54 | Outpatient (CLI) | payer BC, SELFPAY ==
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
--- OUTSIDE RECORDS SUMMARY | 2024-10-01 08:02 | XMS_ITS | Continuity of Care Document ---
Author Organization [facility] Address [address] [place] [address] Phone Care Team Providers Care Faucet Polisher Name Role Phone No Information Unavailable Unavailable Medications Medication Instructions Dosage Effective Dates (start - stop) Status Comments No Drug Therapy Prescribed Advance Directives Directive Yes / No Effective Date File Name No Information Encounters Encounter Description Practice Location Reason(s) For Visit Diagnoses Date Provider Providers Copied on Encounter [facility], [address] [place] [address], [address], [place] tel:[phone] No Information No Information Family History Family [...]
--- OUTSIDE RECORDS SUMMARY | 2024-10-01 08:02 | XMS_ITS | Clinical Summary ---
Author Organization [facility] Address [address] [place] [address] Care Team Providers Care Pairer Name Role Phone Abdirizak Dowling APRN, SAP BI ARCHITECT Primary Care Provider Allergies Active Allergy Reactions Criticality Noted Date Comments Iodine Hives 02/20/2019 Sulfa Antibiotics Hives,Rash 02/20/2019 Medications lisinopril-hydr oCHLOROthiazide (PRINZIDE, ZESTORETIC) 10-12.5 MG Tablet Take 1 Tab by mouth daily. 2 9 Active lidocaine (LIDODERM) 5 % Patch PRN 5 9 Active HYDROcodone-brendon taminophen (NORCO) 5-325 MG Tablet Take 1 Tablet by mouth as needed. 0 9 Active Otis-3 Fatty Acids (FISH OIL) 1000 MG CAPSULE [...] 37 C (98.6 F) 07/21/2022 4:59 PM SERVICE DELIVERY ANALYST Respiratory Rate 24 07/21/2022 5:44 PM SERVICE DELIVERY ANALYST Oxygen Saturation 95% 07/21/2022 5:44 PM SERVICE DELIVERY ANALYST Inhaled Oxygen Concentration - - Weight 101.7 kg (224 lb 3.2 oz) 024 12:59 PM CDT Height 157.5 cm (5' 2 ) 02/17/2024 12:5 9 PM CDT Body Mass Index 41.01 02/17/2024 12:59 PM CDT Plan of Treatment Upcoming Encounters Date Type Department Care Team (Late st Contact Info) Description 02/15/2025 1:00 PM CDT Office Visit [facility] [address] [place] [address] Abdirizak Dowling, PHYSICAL AERODYNAMICIST, SAP BI ARCHITECT [address] [place] [address] Discharge Disposition: Discharged to home or Selfcare Health Maintenance Due Date Last Done Comments Hepatitis C Virus (HCV) Screening 1965 Mammogram 1965 TdaP Immunization 1966 Hepatitis B Immunization (1 of 3 - 19+ 3-dose series) 1985 Pap Smear 1987 Cervical Cancer Screening (CCS) 1996 HPV/Cotest 1996 Colonoscopy 2011 Colorectal Cancer Screening 2011 Cologuard 2016 Immunochemical Fecal Occult Blood 2016 Pneumococcal Immunization (5 0+ years) (1 of 1 - PCV) 2016 Zoster Immunization (1 of 2) 2016 Influenza Immunization (#1) 2024 SARS-COV-2 Immunization ( season) 2024 03/01/2021, 01/29/2021 Respiratory Syncytial Virus (RSV) Immunization (Adult) (1 - 1-dose 75+ series) 2041 Meningococcal Immunization (ACWY) Aged Out No longer eligible b ased on patient's age to complete this topic Rotavirus Immunization Aged Out No lo nger eligible based on patient's age to complete this topic Insurance [facility] Care Teams Pairer Relationship Specialty Start Date End Date Abdirizak Dowling, PHYSICAL AERODYNAMICIST, SAP BI ARCHITECT [address] [place] [address] PCP - General Advanced Practice Nurse 02/17/24
--- OUTSIDE RECORDS SUMMARY | 2024-10-01 08:02 | XMS_ITS | Continuity of Care Document ---
Author Organization [facility], [facility] Address [address] [place] [address] Phone Care Team Providers Care Network Support Engineer Name Role Phone Shekhar Cuellar OD [...] Diagnoses Date Provider Providers Copied on Encounter [facility], [facility], [facility], [place], [id number] , [place] tel: [phone] [facility] No Information 2 Polo Perezwn. [address] [place], [place], [id number] , [place]. tel: [phone] [facility], [facility], [address], [place], [id number] , [place] tel:[phone] [facility] no problems with vision and no complaints (chief complaint)1 (chief complaint)no problems with vision and no complaints (chief complaint)1 (chief complaint) Hypermetropia, bilateralRegular astigmatism, bilateralPresbyopia Strabismic amblyopia, left eye Mar-2 2 Polo Corrigan. [address] [place] [address], [id number] , [place]. tel: [phone] Referring Provider: Shekhar Ferrer, [address] [place] [address], [address] . tel:[phone] [facility], [address] [place] [address], [id number] , tel: [phone] [facility] blurry vision (chief complaint)bl urry vision (chief complaint) Hypermetropia, bilateralPresbyopia Regular astigmatism, bilateralStrabismic amblyopia, left eyeAge-related nuclear cataract, bilateral Nov-0 1 Polo Corrigan. [address] [place] [address], [id number] , [place]. tel: [phone] [facility], [address] [place] [address], [id number] , [facility]: [phone] [facility] not quite as clear (chief complaint)vi nasima not quite as clear (chief complaint) Hypermetropia, bilateralPresbyopia Regular astigmatism, bilateral Dec-3 0 Polo Corrigan. [address] [place] [address], [id number] , [place]. tel: [phone] [facility], [address] [place] [address], [id number] , tel: [phone] [facility] decreased vision (chief complaint)de creased vision (chief complaint) Hypermetropia, bilateralPresbyopia Regular astigmatism, bilateralUnspecifie d amblyopia, right eyeEncounter for examination of eyes and vision without abnormal findingsDry eye syndrome of bilateral lacrimal glands 9 Polo Shekhar. [address] [facility], [place], [id number] , [place]. tel: [phone] [facility], [address] [facility], [place], [id number] , [place] tel: [phone] [facility] no change in VA (chief complaint)no change in VA (chief complaint) Hypermetropia, bilateralRegular astigmatism, bilateralPresbyopia Strabismic amblyopia, left eye Apr- 8 Polo Shekhar. [address] [facility], [place], [id number] , [place]. tel: [phone] [facility], [address] [facility], [facility] [place], [id number] , [place] tel: [phone] [facility] decreased vision (chief complaint)de creased vision (chief complaint) Hypermetropia, bilateral Jun- 7 Polo Shekhar. [address] [facility], [place], [id number] , [place]. tel: [phone] [facility], [address] [place] [address], [facility] [place], [id number] , [place] tel: [phone] [facility] No Information 6 Polo Shekhar. [address] [facility], [place], [id number] , [place]. tel: [phone] [facility], [address] [place] [address], [place], [address] , [place] tel: [phone] [facility] No Information 6 Polo Shekhar. [address] [facility], [place], [address] , [place]. tel:[phone] [facility], [address] [facility], [place], [id number] , [place] tel: [phone] [facility] blurry vision (chief complaint)bl urry vision (chief complaint) PresbyopiaHypermetr opia, bilateralStrabismic amblyopia, left eye 5 Polo Shekhar. [address] [facility], [place], [id number] , [place]. tel: [phone] [facility], [address] [facility], [facility], [id number] , [place] tel: [phone] [facility] No Information 4 Polo Perezwn. [address] [facility], [facility], [id number] , [place]. tel: [phone] [facility], [address] [place] [address], [facility] [place], [id number] , [place] tel: [phone] [facility] No Information 4 Polo Perezwn. [address] [facility], [facility], [id number] , [place]. tel: [phone] [facility], [address] [place] [address], [facility], [id number] , [place] tel: [phone] [facility] blurry vision (chief complaint)ey e hx (chief complaint)bl urry vision (chief complaint)ey e hx (chief complaint) PresbyopiaDiabetes Mellitus Type 2, Uncomplicated 4 Polo Perezwn. [address] [facility], [facility], [id number] , [place]. tel: [phone] [facility], [address] [place] [address], [facility], [id number] , [place] tel: [phone] [facility] No Information 3 Polomeliza Perezwn. [address] [facility], [place], [id number] , [place]. tel: [phone] [facility], [address] [place] [address], [facility] [place], [id number] , [place] tel: [phone] [facility] blurry vision (chief complaint) Diabetes Mellitus Type 2, UncomplicatedPresby opiaHypermetropiaAm blyopia, unspecifiedOpen angle with borderline glaucoma findings 3 Polo Corrigan. [address] [place] [address], [place], [place], [id number] , [place]. tel: [phone] Referring Provider: Shekhar Ferrer, [address] [place] [address], [place], [address] . tel:[phone] [facility], [address] [place] [address], [place], [place], [id number] , [place] tel: [phone] [facility] No Information 3 Polo Corrigan. [address] [facility], [place], [place], [id number] , [place]. tel: [phone] Referring Provider: Shekhar Ferrer, [address] [place] [address], [place], [address] . tel:[phone] [facility], [address] [place] [address], [place], [id number] , [place] tel: [phone] [facility] No Information 1 Polo Corrigan. [address] [place] [address], [place], [place], [id number] , [place]. tel: [phone] [facility], [address] [place] [address], [place], [id number] , [place] tel: [phone] [facility] Diabetes Examination (chief complaint)La zy eye (chief complaint) Amblyopia, unspecifiedDiabetes Mellitus Type 2, UncomplicatedHyperm etropiaPresbyopia 1 Polo Corrigan. [address] [place] [address], [place], [place], [id number] , [place]. tel: [phone] [facility], [address] [place] [address], [place], [id number] , [place] tel: [phone] [facility] No Information 0 Polo Corrigan. [address] [place], [place], [id number] , [place]. tel: [phone] Family History Family Member Type Diagnosis Age At Onset Brother Problem (finding) Amblyopia Problem (finding) Family history of HBP Problem (finding) Family history of catar act Payers Payer name Insurance type Covered constitution party ID Authoriza tion(s) No Information Social [...] t No Information Instructions Date Instruction Additional Funmir radha Impression/Plan Impression/Plan Impression/Plan Impression/Plan Impression/Plan Follow [...] findings - Return in 2 weeks with [facility] for OCT (ON). Pachy tension Related to Open angle with borderline glaucoma findings - [facility] Related [...]
[2024-10-01 08:26] LABS: Basophils Percent Auto 0.6 % (0.2-1.2); Eosinophils Absolute Auto 0.1 K/mm3 (0-0.3); Eosinophils Percent Auto 2.1 % (0-4.4); Hematocrit 42.2 % (37.0-47.0); Hemoglobin 14.2 g/dL (12.0-15.0); Immature Granulocyte Absolute 0.02 K/mm3 (0.00-0.031); Immature Granulocyte Percent A 0.4 % (0-0.5); Lymphocytes Absolute Auto 1.43 K/mm3 (0.9-3.2); Lymphocytes Percent Auto 27.1 % (18.3-44.2); Mean Corpuscular HGB Conc 33.6 g/dl (32-36); Mean Corpuscular Hemoglobin 29.2 pg (26-34); Mean Corpuscular Volume 86.8 fl (80-100); Mean Platelet Volume 9.8 fl (7.4-10.4); Monocytes Absolute Auto 0.4 K/mm3 (0.1-0.6); Monocytes Percent Auto 7.4 % (2.6-8.5); Neutrophils Absolute Auto 3.3 K/mm3 (1.3-6.7); Neutrophils Percent Auto 62.4 % (45.5-73.1); Platelet Count Result 279 k/mm3 (150-375); Red Blood Count 4.86 M/mm3 (4.2-5.4); Red Cell Distribution Width 13.2 % (11.5-14.5); White Blood Count 5.3 K/mm3 (4.5-10.0)
[2024-10-01 08:31] LABS: Anion Gap 10 mmol/L (4-12); Blood Urea Nitrogen 14 mg/dL (7-17); Calcium 9.7 mg/dL (8.4-10.2); Carbon Dioxide 27 mmol/L (22-30); Chloride 104 mmol/L (98-107); Estimated Glomerular Filt Rate > 60; Glucose 98 mg/dL (65-110); Potassium 3.6 mmol/L (3.4-5.0); Sodium 141 mmol/L (137-145)
[2024-10-01 09:44] LABS: Vitamin D 25 Hydroxy 38.1 ng/mL
== END 2024-10-01 07:55 | disposition home or self-care (01) ==
PROVIDERS: PCP Family Medicine; Referring Provider Physician Assistant Medical; Visit Provider Nurse Practitioner Family
DX: J45.909 Unspecified asthma, uncomplicated (principal); D72.829 Elevated white blood cell count, unspecified; I10 Essential (primary) hypertension; R05.3 Chronic cough; R06.02 Shortness of breath; E55.9 Vitamin D deficiency, unspecified
CPT/HCPCS: 36415; 80048; 82306; 82785; 85025; 86003

== ENCOUNTER 2025-03-11 12:45 | Outpatient (CLI) | payer BC, SELFPAY ==
--- OUTSIDE RECORDS SUMMARY | 1999-07-17 19:00 | XMS_ITS | Continuity of Care Document ---
Author Organization [facility] Address [address] [place] [address] Phone Care Team Providers Care Air Conditioning Insulation Installer Name Role Phone No Information Unavailable Unavailable Medications Medication Instructions Dosage Effective Dates (start - stop) Status Comments No Drug Therapy Prescribed Advance Directives Directive Yes / No Effective Date File Name No Information Encounters Encounter Description Practice Location Reason(s) For Visit Diagnoses Date Provider Providers Copied on Encounter [facility], [address] [place] [address], [id number], [place] tel:[phone] No Information No Information Family History Family [...]
--- OUTSIDE RECORDS SUMMARY | 2021-10-22 06:16 | XMS_ITS | Continuity of Care Document ---
Author Organization [facility], L TD Address [address] [place] [address] Phone Care Team Providers Care Systems Software Engineer Name Role Phone Shekhar Cuellar OD Unavailable [...] Diagnoses Date Provider Providers Copied on Encounter [facility], [facility], [facility] [place], [place], [id number] , [place] tel: [phone] [facility] Eye [facility] No Information 2 Polo Perezwn. [address] [place], [place], [id number] , [place]. tel: [phone] [facility], [facility], [address], [place], [address] , [place] tel:[phone] [facility] no problems with vision and no complaints (chief complaint)1 (chief complaint) Hypermetropia, bilateralRegular astigmatism, bilateralPresbyopiaS trabismic amblyopia, left eye Mar-2 2 Polo Corrigan. [address] [place], [place], [address] , [place]. tel: [phone] Referring Provider: Shekhar Ferrer, [address] [place] [address], [address] . tel:[phone] [facility], [address] [place] [address], [id number] , [place] tel: [phone] [facility] blurry vision (chief complaint) Hypermetropia, bilateralPresbyopiaR egular astigmatism, bilateralStrabismic amblyopia, left eyeAge-related nuclear cataract, bilateral Nov-0 1 Polo Corrigan. [address] [place], [place], [address] , [place]. tel: [phone] [facility], [address] [place] [address], [id number] , [place] tel: [phone] [facility] not quite as clear (chief complaint) Hypermetropia, bilateralPresbyopiaR egular astigmatism, bilateral Dec-3 0 Polo Corrigan. [address] [place], [place], [address] , [place]. tel: [phone] [facility], [address] [place] [address], [id number] , [place] tel: [phone] [facility] decreased vision (chief complaint) Hypermetropia, bilateralPresbyopiaR egular astigmatism, bilateralUnspecified amblyopia, right eyeEncounter for examination of eyes and vision without abnormal findingsDry eye syndrome of bilateral lacrimal glands Dec-0 9 Polo Corrigan. [address] [place], [place], [address] , [place]. tel: [phone] [facility], [address] [facility], [place], [address] , [place] tel: [phone] [facility] [address] no change in [place] (chief complaint) Hypermetropia, bilateralRegular astigmatism, bilateralPresbyopiaS trabismic amblyopia, left eye Oct-1 8 Polo Shekhar. [address] [facility], [place], [address] , [place]. tel: [phone] [facility], [address] [facility], [place], [address] , [place] tel: [phone] [facility] [address] decreased vision (chief complaint) Hypermetropia, bilateral Dec-2 7 Polo Shekhar. [address] [facility], [place], [address] , [place]. tel: [phone] [facility], [address] [place] [address], [place], [address] , [place] tel: [phone] [facility] [address] No Information 6 Polo Shekhar. [address] [facility], [place], [address] , [place]. tel: [phone] [facility], [address] [facility], [facility] [place], [address] , [place] tel: [phone] [facility] [address] No Information 6 Polo Shekhar. [address] [facility], [place], [address] , [place]. tel: [phone] [facility], [address] [facility], [place], [address] , [place] tel: [phone] [facility] [address] blurry vision (chief complaint) PresbyopiaHypermetro opal, bilateralStrabismic amblyopia, left eye Dec-3 5 Polo Shekhar. [address] [facility], [place], [address] , [place]. tel:[phone] [facility], [address], [place], [address] , [place] tel: [phone] [facility] [address] No Information 4 Polo Corrigan. [address], [place], [address] , [place]. tel: [phone] [facility], [address], [place], [address] , [place] tel: [phone] [facility] [address] No Information 4 Polo Corrigan. [address], [place], [address] , [place]. tel: [phone] [facility], [address], [place], [address] , [place] tel: [phone] [facility] [address] blurry vision (chief complaint)e ye hx (chief complaint) PresbyopiaDiabetes Mellitus Type 2, Uncomplicated 4 Polo Corrigan. [address], [place], [address] , [place]. tel: [phone] [facility], [address], [place], [address] , [place] tel: [phone] [facility] [address] No Information 3 Polo Corrigan. [address], [place], [address] , [place]. tel: [phone] [facility], [address], [place], [address] , [place] tel: [phone] [facility] [address] Diabetes Mellitus Type 2, UncomplicatedPresbyo piaHypermetropiaAmbl yopia, unspecifiedOpen angle with borderline glaucoma findings 3 Polo Corrigan. [address], [place], [address] , [place]. tel: [phone] Referring Provider: Shekhar Ferrer, [address] [place] [address], [address] . tel:[phone] [facility], [address] [place] [address], [address] [place] [address] , tel: [phone] [facility] [address] No Information 3 Polo Corrigan. [address] [place] [address], [address] [place] [address] , [place]. tel: [phone] Referring Provider: Shekhar Ferrer, [address] [place] [address], [address] . tel:[phone] [facility], [address] [place] [address], [address] [place] [address] , tel: [phone] [facility] [address] No Information 1 Polo Corrigan. [address] [place] [address], [address] [place] [address] , [place]. tel: [phone] [facility], [address] [place] [address], [address] [place] [address] , tel: [phone] [facility] [address] Amblyopia, unspecifiedDiabetes Mellitus Type 2, UncomplicatedHyperme tropiaPresbyopia 1 Polo Corrigan. [address] [place] [address], [address] [place] [address] , [place]. tel: [phone] [facility], [address] [place] [address], [id number] , [place] tel: [phone] [facility] [address] No Information 0 Polo Corrigan. [address] [place] [address], [address] [place] [address] , [place]. tel: [phone] Family History Family Member Type Diagnosis Age At Onset Brother Problem (finding) Amblyopia Problem (finding) Family history of HBP Problem (finding) Family history of catar act Payers Payer name Insurance type Covered libertarian ID Authoriza tion(s) No Information Social History [...] Presbyopia - Return in 1 year w [facility] for Ref T & D. Related to Presbyopia Assessments Type Assessment Date No Information Patient Care Teams Name Effective Dates (start - stop) Status Members No Information
--- OUTSIDE RECORDS SUMMARY | 2025-03-11 12:51 | XMS_ITS | Clinical Summary ---
Author Organization [facility] Address [address] [place] [address] Care Team Providers Care Flight Communications Officer Name Role Phone Dami Naranjo MD Primary Care Provider [phone] Allergies Active Allergy Reactions Criticality Noted Date Comments Povidone Iodine Hives 08/01/2024 Sulfa Antibiotics Hives 08/01/2024 Medications HYDROcodone-acet aminophen (NORCO) 5-325 MG tabletIndication s:Acute Pain < 3 Day Supply Take 1 tablet by mouth every 6 (six) hours as needed. Indications : Acute Pain < 3 Day Supply 10 tablet 08/01/2024 Active Social History Tobacco Use Types Packs/Day Years Used Date Smoking Tobacco: Never Smokeless Tobacco: Never Tobacco Cessation:Counseling Given: Not Answered Comments Unknown Sex and Gender Information Value Date Recorded Sex Assigned at Female 08/01/2024 8:02 PM BANQUET COOK Legal Sex Female 7:39 PM BANQUET COOK Gender Identity Female 08/01/2024 8:02 PM BANQUET COOK Sexual Orientation Not on file Last Filed Vital Signs Vital Sign Reading Time Taken Comments Blood Pressure 166/102 08/01/2024 7:59 PM BANQUET COOK Pulse 86 08/01/2024 7:59 PM BANQUET COOK Temperature 36.7 C (98 F) 08/01/2024 7:59 PM BANQUET COOK Respiratory Rate 16 08/01/2024 7:59 PM BANQUET COOK Oxygen Saturation 95% 08/01/2024 7:59 PM BANQUET COOK Inhaled Oxygen Concentration - - Weight 102.1 kg (225 lb) 08/01/2024 7:59 PM BANQUET COOK Height 157.5 cm (5' 2) 08/01/2024 7:59 PM BANQUET COOK Body Mass Index 41.15 08/01/2024 7:59 PM BANQUET COOK Plan of Treatment Health Maintenance Due Date [...] wi th HPV 1996 Mammogram Screening 2006 Pneumococcal Vaccine: 50+ Years (1 of 1 - PCV) 2016 Zoster Vaccines (1 of 2) 2016 COVID-19 Vaccine (3 - 2023-2 5 season) 2024 03/01/2021, 01/29/2021 Meningococcal B Vaccine Aged Out No l onger eligible based on patient's age to complete this topic Meningococcal Vaccine Aged Out No anastasia amy eligible based on patient's age to complete this topic RSV Immunizations Under 20 Months Aged Out No longer eligible b ased on patient's age to complete this topic Insurance [facility] [place] Care Teams Flight Communications Officer Relationship Specialty Start Date End Date Dami Naranjo MD [address] [place] [address] PCP - General FAMILY PRACTICE 08/01/24
--- OUTSIDE RECORDS SUMMARY | 2025-03-11 12:52 | XMS_ITS | Clinical Summary ---
Author Organization [facility] Address [address] [place] [address] Care Team Providers Care Market Editor Name Role Phone Abdirizak Dowling APRN, BACK GRINDER Primary Care Provider Allergies Active Allergy Reactions Criticality Noted Date Comments Iodine Hives 02/20/2019 Sulfa Antibiotics Hives,Rash 02/20/2019 Medications lisinopril-hydr oCHLOROthiazide (PRINZIDE, ZESTORETIC) 10-12.5 MG Tablet Take 1 Tab by mouth daily. 2 9 Active lidocaine (LIDODERM) 5 % Patch PRN 5 9 Active HYDROcodone-brendon taminophen (NORCO) 5-325 MG Tablet Take 1 Tablet by mouth as needed. 0 9 Active [place]-3 Fatty Acids (FISH OIL) 1000 MG CAPSULE [...] 37 C (98.6 F) 07/21/2022 4:59 PM HOSIERY MATER Respiratory Rate 24 07/21/2022 5:44 PM HOSIERY MATER Oxygen Saturation 95% 07/21/2022 5:44 PM HOSIERY MATER Inhaled Oxygen Concentration - - Weight 101.7 kg (224 lb 3.2 oz) 024 12:59 PM CDT Height 157.5 cm (5' 2) 02/17/2024 12:5 9 PM CDT Body Mass Index 41.01 02/17/2024 12:59 PM CDT Plan of Treatment Health Maintenance Due Date Last Done Comments Hepatitis C Virus (HCV) Screening 1966 Mammogram 1966 TdaP Immunization 1966 Hepatitis B Immunization (1 of 3 - 19+ 3-dose series) 1985 Cologuard 2011 Colonoscopy 2011 Colorectal Cancer Screening 2011 Immunochemical Fecal Occult Blood 2011 Pneumococcal Immunization (5 0+ years) (1 of 1 - PCV) 2016 Zoster Immunization (1 of 2) 2016 SARS-COV-2 Immunization (3 - season) 2024 03/01/2021, 01/29/2021 Influenza Immunization (#1) 2025 Respiratory Syncytial Virus (RSV) Immunization (Adult) (1 - 1-dose 75+ series) 2041 Human Papillomavirus (HPV) Immunization Aged Out No longer eligible b ased on patient's age to complete this topic Meningococcal Immunization (ACWY) Aged Out No longer eligible b ased on patient's age to complete this topic Rotavirus Immunization Aged Out No lo nger eligible based on patient's age to complete this topic Insurance [facility] Care Teams Market Editor Relationship Specialty Start Date End Date Abdirizak Dowling APRN, BACK GRINDER [address] [place] [address] PCP - General Advanced Practice Nurse 02/17/24
--- NOTE | 2025-03-13 15:00 | WPDMETH ---
Methacholine Procedure Perform Procedure Performed Methacholine Challenge Methacholine Challenge Methacholine Challenge: This is a methacholine challenge test. The test was performed and interpreted in accordance with the 2017 ERS technical standard, endorsed by the ATS, using the GLI 2012 reference equations. Testing was performed with increasing doses of nebulized methacholine following a quadrupling dosage protocol. The methacholine dose was delivered via the [employer] nebulizer using a 1-minutes tidal breathing protocol. The best post-methacholine FEV1 values were used to determine the change from the post diluent FEV1. The delivered dose of methacholine was used to calculate the provocative dose causing a 20% fall in FEV1 (PD20). Findings: Baseline FEV1 1.51 L, 64% predicted. Post diluent FEV1 1.42 L Post 1.81 mcg methacholine FEV1 0.60 L, decreased 25% Post albuterol nebulization FEV1 1.37 L Impression: The PD20 is less than 6 mcg which is characterized as marked airway hyperresponsiveness. There are no prior methacholine challenge studies for comparison.
== END 2025-03-11 12:46 | disposition home or self-care (01) ==
LOC: ANHPFT 12:48
PROVIDERS: PCP Family Medicine; Visit Provider Nurse Practitioner Family
DX: J39.3 Upper respiratory tract hypersensitivity reaction, site unspecified (principal)
CPT/HCPCS: 94070

== ENCOUNTER 2025-03-15 10:04 | Outpatient (CLI) | payer BC, SELFPAY ==
--- OUTSIDE RECORDS SUMMARY | 1999-07-17 19:00 | XMS_ITS | Continuity of Care Document ---
Author Organization [facility] Address [address] [place] [address] Phone Care Team Providers Care Trip Motor Operator Name Role Phone No Information Unavailable Unavailable Medications Medication Instructions Dosage Effective Dates (start - stop) Status Comments No Drug Therapy Prescribed Advance Directives Directive Yes / No Effective Date File Name No Information Encounters Encounter Description Practice Location Reason(s) For Visit Diagnoses Date Provider Providers Copied on Encounter [facility], [address] [place] [address], [address], [place] tel:[phone] No Information No Information Family History Family Member Type Diagnosis Age At Onset No Information Payers Payer name Insurance type Covered democrat ID Authoriza tion(s) No Information Social History [...]
--- OUTSIDE RECORDS SUMMARY | 2021-10-22 06:16 | XMS_ITS | Continuity of Care Document ---
Author Organization [facility], L TD Address [address] [place] [address] Phone Care Team Providers Care Digital Analytics Manager Name Role Phone Shekhar Cuellar OD Unavailable [...] Diagnoses Date Provider Providers Copied on Encounter [facility], [facility], [facility] [place], [place], [address] , [place] tel: [phone] [facility] No Information 2 Polo Perezwn. [address] [place], [place], [address] , [place]. tel: [phone] [facility], [facility], [address] [place], [place], [address] , [place] tel:[phone] [facility] no problems with vision and no complaints (chief complaint)1 (chief complaint) Hypermetropia, bilateralRegular astigmatism, bilateralPresbyopiaS trabismic amblyopia, left eye Mar-2 2 Polo Corrigan. [address] [place], [place], [address] , [place]. tel: [phone] Referring Provider: Shekhar Ferrer, [address] [place] [address], [address] . tel:[phone] [facility], [address] [place] [address], [id number] , [place] tel: [phone] [facility] blurry vision (chief complaint) Hypermetropia, bilateralPresbyopiaR egular astigmatism, bilateralStrabismic amblyopia, left eyeAge-related nuclear cataract, bilateral Nov-0 1 oPlo Corrigan. [address] [place], [place], [address] , [place]. tel: [phone] [facility], [address] [place] [address], [id number] , [place] tel: [phone] [facility] not quite as clear (chief complaint) Hypermetropia, bilateralPresbyopiaR egular astigmatism, bilateral Dec-3 0 Polo Corrigan. [address] [place], [place], [address] , [place]. tel: [phone] [facility], [address] [place] [address], [id number] , [place] tel: [phone] [facility] decreased vision (chief complaint) Hypermetropia, bilateralPresbyopiaR egular astigmatism, bilateralUnspecified amblyopia, right eyeEncounter for examination of eyes and vision without abnormal findingsDry eye syndrome of bilateral lacrimal glands Dec-0 9 Polo Corrigan. [address] [place], [place], [address] , [place]. tel: [phone] [facility], [address] [facility], [place], [address] , [place] tel: [phone] [facility] no change in [place] (chief complaint) Hypermetropia, bilateralRegular astigmatism, bilateralPresbyopiaS trabismic amblyopia, left eye Oct-1 8 Polo Shekhar. [address] [facility], [place], [address] , [place]. tel: [phone] [facility], [address] [facility], [place], [address] , [place] tel: [phone] [facility] decreased vision (chief complaint) Hypermetropia, bilateral Dec-2 7 Polo Shekhar. [address] [facility], [place], [address] , [place]. tel: [phone] [facility], [address] [place] [address], [place], [address] , [place] tel: [phone] [facility] No Information 6 Polo Shekhar. [address] [facility], [place], [address] , [place]. tel: [phone] [facility], [address] [facility], [facility], [address] , [place] tel: [phone] [facility] No Information 6 Polo Shekhar. [address] [facility], [place], [address] , [place]. tel: [phone] [facility], [address] [facility], [place], [address] , [place] tel: [phone] [facility] blurry vision (chief complaint) PresbyopiaHypermetro opal, bilateralStrabismic amblyopia, left eye Dec-3 5 Polo Shekhar. [address] [facility], [place], [address] , [place]. tel:[phone] [facility], [address], [place], [address] , [place] tel: [phone] [facility] No Information 4 Polo Corrigan. [address], [place], [address] , [place]. tel: [phone] [facility], [address], [place], [address] , [place] tel: [phone] [facility] No Information 4 Polo Corrigan. [address], [place], [address] , [place]. tel: [phone] [facility], [address], [place], [address] , [place] tel: [phone] [facility] blurry vision (chief complaint)e ye hx (chief complaint) PresbyopiaDiabetes Mellitus Type 2, Uncomplicated 4 Polo Corrigan. [address], [place], [address] , [place]. tel: [phone] [facility], [address], [place], [address] , [place] tel: [phone] [facility] No Information 3 Polo Corrigan. [address], [place], [place], [address] , [place]. tel: [phone] [facility], [address], [place], [address] , [place] tel: [phone] [facility] Diabetes Mellitus Type 2, UncomplicatedPresbyo piaHypermetropiaAmbl yopia, unspecifiedOpen angle with borderline glaucoma findings 3 Polo Corrigan. [address], [place], [address] , [place]. tel: [phone] Referring Provider: Shekhar Ferrer, [address] [place] [address], [address] . tel:[phone] [facility], [address] [place] [address], [address] [place] [address] , tel: [phone] [facility] No Information 3 Polo Corrigan. [address] [place] [address], [address] [place] [address] , [place]. tel: [phone] Referring Provider: Shekhar Ferrer, [address] [place] [address], [address] . tel:[phone] [facility], [address] [place] [address], [address] [place] [address] , tel: [phone] [facility] No Information 1 Polo Corrigan. [address] [place] [address], [address] [place] [address] , [place]. tel: [phone] [facility], [address] [place] [address], [address] [place] [address] , tel: [phone] [facility] Amblyopia, unspecifiedDiabetes Mellitus Type 2, UncomplicatedHyperme tropiaPresbyopia 1 Polo Corrigan. [address] [place] [address], [address] [place] [address] , [place]. tel: [phone] [facility], [address] [place] [address], [id number] , [place] tel: [phone] [facility] No Information 0 Polo Corrigan. [address] [place] [address], [address] [place] [address] , [place]. tel: [phone] Family History Family Member Type Diagnosis Age At Onset Brother Problem (finding) Amblyopia Problem (finding) Family history of HBP Problem (finding) Family history of catar act Payers Payer name Insurance type Covered republican [...] findings - [facility] [...]
--- OUTSIDE RECORDS SUMMARY | 2025-03-15 10:10 | XMS_ITS | Clinical Summary ---
Author Organization [facility] Address [address] [place] [address] Care Team Providers Care Registration Coordinator Name Role Phone Abdirizak Dowling APRN, SWEET DOUGH MIXER Primary Care Provider Allergies Active Allergy Reactions Criticality Noted Date Comments Iodine Hives 02/20/2019 Sulfa Antibiotics Hives,Rash 02/20/2019 Medications lisinopril-hydr oCHLOROthiazide (PRINZIDE, ZESTORETIC) 10-12.5 MG Tablet Take 1 Tab by mouth daily. 2 9 Active lidocaine (LIDODERM) 5 % Patch PRN 5 9 Active HYDROcodone-brendon taminophen (NORCO) 5-325 MG Tablet Take 1 Tablet by mouth as needed. 0 9 Active [place]-3 Fatty Acids (FISH OIL) 1000 MG CAPSULE [...] 37 C (98.6 F) 07/21/2022 4:59 PM DIRECTOR DIGITAL ADVERTISING Respiratory Rate 24 07/21/2022 5:44 PM DIRECTOR DIGITAL ADVERTISING Oxygen Saturation 95% 07/21/2022 5:44 PM DIRECTOR DIGITAL ADVERTISING Inhaled Oxygen Concentration - - Weight 101.7 [...] patient's age to complete this topic Insurance [facility] Care Teams Registration Coordinator Relationship Specialty Start Date End Date Abdirizak Dowling APRN, SWEET DOUGH MIXER [address] [place] [address] PCP - General Advanced Practice Nurse 02/17/24
== END 2025-03-15 10:05 | disposition home or self-care (01) ==
PROVIDERS: PCP Family Medicine; Visit Provider Nurse Practitioner Family
DX: R09.3 Abnormal sputum (principal)
CPT/HCPCS: 87070; 87101; 87116; 87205; 87206

== ENCOUNTER 2025-04-19 11:44 | Outpatient (CLI) | payer BC, SELFPAY ==
--- OUTSIDE RECORDS SUMMARY | 1999-07-17 19:00 | XMS_ITS | Continuity of Care Document ---
Author Organization [facility] Address [address] [place] [address] Phone Care Team Providers Care Household Appliance Mechanic Name Role Phone No Information Unavailable Unavailable Medications Medication Instructions Dosage Effective Dates (start - stop) Status Comments No Drug Therapy Prescribed Advance Directives Directive Yes / No Effective Date File Name No Information Encounters Encounter Description Practice Location Reason(s) For Visit Diagnoses Date Provider Providers Copied on Encounter [facility], [address] [place] [address], [address], [place] tel:[phone] No Information No Information Family History Family [...]
--- OUTSIDE RECORDS SUMMARY | 2021-10-22 06:16 | XMS_ITS | Continuity of Care Document ---
Author Organization [facility], L TD Address [address] [place] [address] Phone Care Team Providers Care Machine Tool Operator Name Role Phone Shekhar Cuellar OD Unavailable [...] Diagnoses Date Provider Providers Copied on Encounter [facility], [facility], [facility] [place], [place], [address] , [place] tel: [phone] [facility] No Information 2 Polo Perezwn. [address] [place], [place], [address] , [place]. tel: [phone] [facility], [facility], [address] [place], [place], [address] , [place] tel:[phone] [facility]-[place] no problems with vision and no complaints (chief complaint)1 (chief complaint) Hypermetropia, bilateralRegular astigmatism, bilateralPresbyopiaS trabismic amblyopia, left eye Mar-2 2 Polo Corrigan. [address] [place], [place], [address] , [place]. tel: [phone] Referring Provider: Shekhar Ferrer, [address] [place] [address], [address] . tel:[phone] [facility], [address] [place] [address], [id number] , [place] tel: [phone] [facility] blurry vision (chief complaint) Hypermetropia, bilateralPresbyopiaR egular astigmatism, bilateralStrabismic amblyopia, left eyeAge-related nuclear cataract, bilateral Nov-0 1 Polo Corrigan. [address] [place], [place], [address] , [place]. tel: [phone] [facility], [address] [place] [address], [id number] , [place] tel: [phone] [facility] not quite as clear (chief complaint) Hypermetropia, bilateralPresbyopiaR egular astigmatism, bilateral Dec-3 0 Polo Corrigan. [address] [place], [place], [address] , [place]. tel: [phone] [facility] Eye [facility], [address] [place] [address], [id number] , [place] tel: [phone] [facility] decreased vision (chief complaint) Hypermetropia, bilateralPresbyopiaR egular astigmatism, bilateralUnspecified amblyopia, right eyeEncounter for examination of eyes and vision without abnormal findingsDry eye syndrome of bilateral lacrimal glands Dec-0 9 Polo Corrigan. [address] [place], [place], [address] , [place]. tel: [phone] [facility], [address] [facility], [place], [address] , [place] tel: [phone] [facility] no change in [place] (chief complaint) Hypermetropia, bilateralRegular astigmatism, bilateralPresbyopiaS trabismic amblyopia, left eye Oct-1 8 Polo Shekhar. [address] [facility], [place], [address] , [place]. tel: [phone] [facility], [address] [facility], [place], [address] , [place] tel: [phone] [facility] decreased vision (chief complaint) Hypermetropia, bilateral Dec-2 7 Polo Shekhar. [address] [facility], [place], [address] , [place]. tel: [phone] [facility], [address] [place] [address], [place], [address] , [place] tel: [phone] [facility] No Information 6 Polo Shekhar. [address] [facility], [place], [address] , [place]. tel: [phone] [facility], [address] [facility], [facility] [place], [address] , [place] tel: [phone] [facility] No Information 6 Polo Shekhar. [address] [facility], [place], [address] , [place]. tel: [phone] [facility], [address] [facility], [place], [address] , [place] tel: [phone] [facility] blurry vision (chief complaint) PresbyopiaHypermetro opal, bilateralStrabismic amblyopia, left eye Dec-3 5 Polo Shekhar. [address] [facility], [place], [address] , [place]. tel:[phone] [facility], [address], [place], [address] , [place] tel: [phone] [facility] No Information 4 Polo Corrigan. [address], [place], [address] , [place]. tel: [phone] [facility], [address], [place], [address] , [place] tel: [phone] [facility] No Information 4 Polo Corrigan. [address], [place], [address] , [place]. tel: [phone] [facility], [address], [place], [address] , [place] tel: [phone] [facility] blurry vision (chief complaint)e ye hx (chief complaint) PresbyopiaDiabetes Mellitus Type 2, Uncomplicated 4 Polo Corrigan. [address], [place], [address] , [place]. tel: [phone] [facility], [address], [place], [address] , [place] tel: [phone] [facility] No Information 3 Polo Corrigan. [address], [place], [address] , [place]. tel: [phone] [facility], [address], [place], [address] , [place] tel: [phone] [facility] Diabetes Mellitus Type 2, UncomplicatedPresbyo piaHypermetropiaAmbl yopia, unspecifiedOpen angle with borderline glaucoma findings 3 Polo Corrigan. [address], [place], [address] , [place]. tel: [phone] Referring Provider: Shekhar Ferrer, [address] [place] [address], [address] . tel:[phone] [facility], [address] [place] [address], [address] [place] [address] , tel: [phone] [facility] No Information 3 Polo Corrigan. [address] [place] [address], [address] [place] [address] , [place]. tel: [phone] Referring Provider: Shekhar Ferrer, [address] [place] [address], [address] . tel:[phone] [facility], [address] [place] [address], [address] [place] [address] , tel: [phone] [facility] No Information 1 Polo Corrigan. [address] [place] [address], [address] [place] [address] , [place]. tel: [phone] [facility], [address] [place] [address], [address] [place] [address] , tel: [phone] [facility] Amblyopia, unspecifiedDiabetes Mellitus Type 2, UncomplicatedHyperme tropiaPresbyopia 1 Polo Corrigan. [address] [place] [address], [address] [place] [address] , [place]. tel: [phone] [facility], [address] [place] [address], [id number] , [place] tel: [phone] [facility] No Information 0 Polo Corrigan. [address] [place] [address], [address] [place] [address] , [place]. tel: [phone] Family History Family Member Type Diagnosis Age [...] Infor radha Impression/Plan Impression/Plan Impression/Plan Impression/Plan Impression/Plan Follow up - Return i n 1 year with [facility] for Refract T & D. Impression/Plan - OU healthy. No cataracts, glaucoma [...] with borderline glaucoma findings - [facility] Related to Presbyopia Amblyopia, unspecifi ed OS Condition: established, stable. Diab. Mon. OU Condition: established, stable. Hypermetropia OU Condition: established, stable. Presbyopia OU Condition: established, stable. - Eyes healthy ou. No cat, no glauc., no mac. degen., no DR OU. Can update gls. rx if pt. elects. Discussed os turning in. Can have Dr. Squires look at and evaluate. Related to Presbyopia Assessments Type Assessment Date No Information Patient Care Teams Name Effective Dates (start - stop) Status Members No Information
--- OUTSIDE RECORDS SUMMARY | 2025-04-19 11:46 | XMS_ITS | Clinical Summary ---
Author Organization [facility] Address [address] [place] [address] Care Team Providers Care Steam Room Attendant Name Role Phone Abdirizak Dowling APRN, FILM WAXER Primary Care Provider Allergies Active Allergy Reactions Criticality Noted Date Comments Iodine Hives 02/20/2019 Sulfa Antibiotics Hives,Rash 02/20/2019 Medications lisinopril-hydr oCHLOROthiazide (PRINZIDE, ZESTORETIC) 10-12.5 MG Tablet Take 1 Tab by mouth daily. 2 9 Active lidocaine (LIDODERM) 5 % Patch PRN 5 9 Active HYDROcodone-brendon taminophen (NORCO) 5-325 MG Tablet Take 1 Tablet by mouth as needed. 0 9 Active [place]-3 Fatty Acids (FISH OIL) 1000 MG CAPSULE [...] 37 C (98.6 F) 07/21/2022 4:59 PM AUTOMOBILE MECHANIC SUPERVISOR Respiratory Rate 24 07/21/2022 5:44 PM AUTOMOBILE MECHANIC SUPERVISOR Oxygen Saturation 95% 07/21/2022 5:44 PM AUTOMOBILE MECHANIC SUPERVISOR Inhaled Oxygen Concentration - - Weight 101.7 [...] (1 of 2) 2016 Influenza Immunization (#1) 2025 SARS-COV-2 Immunization (3 - season) 2025 03/01/2021, 01/29/2021 Respiratory Syncytial Virus (RSV) Immunization [...] patient's age to complete this topic Insurance [facility] Care Teams Steam Room Attendant Relationship Specialty Start Date End Date Abdirizak Dowling APRN, FILM WAXER [address] [place] [address] PCP - General Advanced Practice Nurse 02/17/24
== END 2025-04-19 11:45 | disposition home or self-care (01) ==
LOC: ANHLAB 11:44
PROVIDERS: PCP Family Medicine; Visit Provider Nurse Practitioner Family
DX: R09.3 Abnormal sputum (principal)
CPT/HCPCS: 87101

== ENCOUNTER 2025-06-07 07:45 | Outpatient (CLI) | payer BC, SELFPAY ==
--- OUTSIDE RECORDS SUMMARY | 1999-07-17 18:00 | XMS_ITS | Continuity of Care Document ---
Author Organization [facility] Address [address] [place] [address] Phone Care Team Providers Care Support Director Name Role Phone No Information Unavailable Unavailable Medications Medication Instructions Dosage Effective Dates (start - stop) Status Comments No Drug Therapy Prescribed Advance Directives Directive Yes / No Effective Date File Name No Information Encounters Encounter Description Practice Location Reason(s) For Visit Diagnoses Date Provider Providers Copied on Encounter [facility], [address] [place] [address], [id number], [place] tel:[phone] No Information No Information Family History Family Member Type Diagnosis Age At Onset No Information Payers Payer name Insurance type Covered green party ID Authoriza tion(s) No Information Social History [...]
--- OUTSIDE RECORDS SUMMARY | 2025-06-07 07:48 | XMS_ITS | Clinical Summary ---
Author Organization [facility] Address [address] [place] [address] Care Team Providers Care Display Card Writer Name Role Phone Abdirizak Dowling APRN, NEWSAGENT Primary Care Provider Allergies Active Allergy Reactions Criticality Noted Date Comments Iodine Hives 02/20/2019 Sulfa Antibiotics Hives,Rash 02/20/2019 Medications lisinopril-hydr oCHLOROthiazide (PRINZIDE, ZESTORETIC) 10-12.5 MG Tablet Take 1 Tab by mouth daily. 2 9 Active lidocaine (LIDODERM) 5 % Patch PRN 5 9 Active HYDROcodone-brendon taminophen (NORCO) 5-325 MG Tablet Take 1 Tablet by mouth as needed. 0 9 Active [place]-3 Fatty Acids (FISH OIL) 1000 MG CAPSULE [...] 37 C (98.6 F) 07/21/2022 4:59 PM STATUE MAKER Respiratory Rate 24 07/21/2022 5:44 PM STATUE MAKER Oxygen Saturation 95% 07/21/2022 5:44 PM STATUE MAKER Inhaled Oxygen Concentration - - Weight 101.7 kg (224 lb 3.2 oz) 024 12:59 PM CDT Height 157.5 cm (5' 2) 02/17/2024 12:5 9 PM CDT Body Mass Index 41.01 02/17/2024 12:59 PM CDT Plan of Treatment Health Maintenance Due Date Last Done Comments Hepatitis C Virus (HCV) Screening 1966 Mammogram 1966 TdaP Immunization 1966 Varicella Immunization (1 of 2 - 13+ 2-dose series) 1979 Hepatitis B Immunization (1 of 3 - 19+ 3-dose series) 1985 Cologuard 2011 Colonoscopy 2011 Colorectal Cancer Screening 2011 Immunochemical Fecal Occult Blood 2011 Pneumococcal Immunization (5 0+ years) (1 of 1 - PCV) 2016 Respiratory Syncytial Virus (RSV) Immunization (Adult) (1 - Risk 50-74 years 1-dose series) 2016 Zoster Immunization (1 of 2) 2016 Influenza Immunization (#1) 2025 SARS-COV-2 Immunization ( season) 2025 03/01/2021, 01/29/2021 Human Papillomavirus (HPV) Immunization Aged Out No longer eligible b ased on patient's age to complete this topic Meningococcal Immunization (ACWY) Aged Out No longer eligible b ased on patient's age to complete this topic Rotavirus Immunization Aged Out No lo nger eligible based on patient's age to complete this topic Insurance [facility] Care Teams Display Card Writer Relationship Specialty Start Date End Date Abdirizak Dowling APRN, NEWSAGENT [address] [place] [address] PCP - General Advanced Practice Nurse 02/17/24
--- OUTSIDE RECORDS SUMMARY | 2025-06-07 07:48 | XMS_ITS | Clinical Summary ---
Author Organization [facility] Address [address] [place] [address] Care Team Providers Care Clothes Separator Name Role Phone Dami Naranjo MD Primary Care Provider [phone] Allergies Active Allergy Reactions Criticality Noted Date [...] Sex Assigned at Female 08/01/2024 8:02 PM ELECTROSTATIC POWDER COATING TECHNICIAN Legal Sex Female 7:39 PM ELECTROSTATIC POWDER COATING TECHNICIAN Gender Identity Female 08/01/2024 8:02 PM ELECTROSTATIC POWDER COATING TECHNICIAN Sexual Orientation Not on file Last Filed Vital Signs Vital Sign Reading Time Taken Comments Blood Pressure 166/102 08/01/2024 7:59 PM ELECTROSTATIC POWDER COATING TECHNICIAN Pulse 86 08/01/2024 7:59 PM ELECTROSTATIC POWDER COATING TECHNICIAN Temperature 36.7 C (98 F) 08/01/2024 7:59 PM ELECTROSTATIC POWDER COATING TECHNICIAN Respiratory Rate 16 08/01/2024 7:59 PM ELECTROSTATIC POWDER COATING TECHNICIAN Oxygen Saturation 95% 08/01/2024 7:59 PM ELECTROSTATIC POWDER COATING TECHNICIAN Inhaled Oxygen Concentration - - Weight 102.1 kg (225 lb) 08/01/2024 7:59 PM ELECTROSTATIC POWDER COATING TECHNICIAN Height 157.5 cm (5' 2) 08/01/2024 7:59 PM ELECTROSTATIC POWDER COATING TECHNICIAN Body Mass Index 41.15 08/01/2024 7:59 PM ELECTROSTATIC POWDER COATING TECHNICIAN Plan of Treatment Health Maintenance Due Date [...] of 2) 2016 COVID-19 Vaccine (3 - 2024-2 6 season) 2025 03/01/2021, 01/29/2021 Influenza Adult (#1) 2025 Hepatitis A Vaccines Aged Out No long er eligible based on patient's age to complete this topic Meningococcal B Vaccine Aged Out No l onger eligible based on patient's age to complete this topic Meningococcal Vaccine Aged Out No anastasia amy eligible based on patient's age to complete this topic RSV Immunizations Under 20 Months Aged Out No longer eligible b ased on patient's age to complete this topic Insurance [facility] [place] Care Teams Clothes Separator Relationship Specialty Start Date End Date Dami Naranjo MD [address] [place] [address] PCP - General FAMILY PRACTICE 08/01/24
[2025-06-07 08:28] LABS: Hematocrit 42.9 % (37.0-47.0); Hemoglobin 14.2 g/dL (12.0-15.0); Immature Granulocyte Percent A 0.4 % (0-0.5); Lymphocytes Absolute Auto 1.18 K/mm3 (0.9-3.2); Mean Corpuscular HGB Conc 33.1 g/dl (32-36); Mean Corpuscular Hemoglobin 29.0 pg (26-34); Mean Corpuscular Volume 87.6 fl (80-100); Nucleated Red Blood Cells Absolute Auto 0.000 K/mm3 (0.0-0.012); Nucleated Red Blood Cells Perc 0.0 % (0.0-0.2); Platelet Count Result 260 k/mm3 (150-375); Red Blood Count 4.90 M/mm3 (4.2-5.4); White Blood Count 5.5 K/mm3 (4.5-10.0)
[2025-06-07 08:49] LABS: Alanine Aminotransferase 18 U/L (6-35); Albumin Level 4.3 g/dL (3.5-5.1); Alkaline Phosphatase 69 U/L (38-126); Anion Gap 7 mmol/L (4-12); Aspartate Amino Transferase 26 U/L (14-36); Bilirubin,Total 1.8 mg/dL (0.2-1.3); Blood Urea Nitrogen 18 mg/dL (7-17); Calcium 9.6 mg/dL (8.4-10.2); Carbon Dioxide 29 mmol/L (22-30); Chloride 102 mmol/L (98-107); Estimated Glomerular Filt Rate > 60; Glucose 96 mg/dL (65-110); Potassium 3.6 mmol/L (3.4-5.0); Sodium 138 mmol/L (137-145); Total Protein 7.7 g/dL (6.3-8.2)
[2025-06-07 08:53] LABS: Cholesterol 264 mg/dL (0-200); HDL Direct 61 mg/dL; Triglycerides 98 mg/dL (<150)
[2025-06-07 09:29] LABS: Thyroid Stimulating Hormone 1.080 uIU/mL (0.465-4.680)
[2025-06-07 10:35] LABS: Free T4 Free Thyroxine 1.07 ng/dL (0.78-2.19)
== END 2025-06-07 07:46 | disposition home or self-care (01) ==
LOC: ANHLAB 07:46
PROVIDERS: PCP Family Medicine; Referring Provider Family Medicine
DX: E55.9 Vitamin D deficiency, unspecified (principal); Z13.0 Encounter for screening for diseases of the blood and blood-forming organs and certain disorders involving the immune mechanism; Z13.1 Encounter for screening for diabetes mellitus; Z13.220 Encounter for screening for lipoid disorders; I10 Essential (primary) hypertension; E03.9 Hypothyroidism, unspecified; E78.5 Hyperlipidemia, unspecified
CPT/HCPCS: 36415; 80053; 80061; 82248; 82306; 84439; 84443; 85025

== ENCOUNTER 2025-06-10 10:37 | Outpatient (CLI) | payer BC, SELFPAY ==
--- OUTSIDE RECORDS SUMMARY | 1999-07-17 18:00 | XMS_ITS | Continuity of Care Document ---
Author Organization [facility] Address [address] [place] [address] Phone Care Team Providers Care Power Project Manager Name Role Phone No Information Unavailable Unavailable Medications Medication Instructions Dosage Effective Dates (start - stop) Status Comments No Drug Therapy Prescribed Advance Directives Directive Yes / No Effective Date File Name No Information Encounters Encounter Description Practice Location Reason(s) For Visit Diagnoses Date Provider Providers Copied on Encounter [facility], [address] [place] [address], [id number], [place] tel:[phone] No Information No Information Family History Family Member Type Diagnosis Age At Onset No Information Payers Payer name Insurance type Covered republican ID Authoriza tion(s) No Information Social History Type Description Quantity Date Captured Comments Sex Female Smoking Status No Information Chief Complaint And Reason For Visit No Information History Of Present Illness Encounter Date Complaint History Of Prese nt Illness No Information Medications Administered Medication Instructions Dosage Effective Dates (start - stop) Status Comments No Drug Therapy Prescribed Instructions Date Instruction Additional Infor mation No Information Assessments Type Assessment Date No Information
--- OUTSIDE RECORDS SUMMARY | 2021-10-22 05:16 | XMS_ITS | Continuity of Care Document ---
Author Organization [facility] Address [address] [place] [address] Phone Care Team Providers Care Senior Digital Designer Name Role Phone Shekhar Cuellar OD Unavailable Unavailable Allergies, Adverse Reactions, Alerts Substance Reaction Status Criticality IODINE Hives / Skin Rash(mild) Active Low sulfabenzamide Hives / Skin Rash(mild) Active Lo w Medications Medication Instructions Dosage Effective Dates (start - stop) Status Comments lisinopril 10 mg-hydrochlorothiaz shannan 12.5 mg tablet take 1 tablet by oral route every day 1.00 tablet - Active Procedures Procedure Date REFRACTION EYE EXAM ESTABLISHED PATIENT REFRACTION EYE EXAM ESTABLISHED PATIENT REFRACTION EYE EXAM ESTABLISHED PATIENT Wellness/Screening Photo REFRACTION EYE EXAM ESTABLISHED PATIENT REFRACTION EYE EXAM ESTABLISHED PATIENT EYE EXAM, EXISTING PATIENT VISION REFRACTION OPTIONAL UPDATE Deluxe lens feature Lens Polycarb Trifocal Lens Standard A/R Crizal Avance UV Miscellaneous vision service UV Lens Coating Vision svcs frames purchases EYE EXAM, EXISTING PATIENT VISION REFRACTION OPTIONAL UPDATE Vision svcs frames purchases Single Vision Lens Lens Polycarb A/R Standard UV Lens Miscellaneous vision service Trifocal Lens Progressive lens per lens Lens Polycarb Deluxe lens feature A/R Standard Vision svcs frames purchases Trifocal Lens Progressive lens per lens Lens Polycarb Deluxe lens feature A/R Standard Miscellaneous vision service UV Lens EYE EXAM, EXISTING PATIENT VISION REFRACTION OPTIONAL UPDATE Bifocal Lens Progressive lens per lens Lens Polycarb Bifocal Lens Progressive lens per lens Lens Polycarb A/R Standard EYE EXAM, EXISTING PATIENT VISION REFRACTION OPTIONAL UPDATE Extended Ophthalmoscopy FUNDUS PHOTOGRAPHY Frame Progressive Lens EYE EXAM, EXISTING PATIENT VISION REFRACTION OPTIONAL UPDATE EYE EXAM, EXISTING PATIENT VISION REFRACTION UPDATE Frame Progressive Lens Advance Directives Directive Yes / No Effective Date File Name No Information Encounters Encounter Description Practice Location Reason(s) For Visit Diagnoses Date Provider Providers Copied on Encounter [facility], [facility], [facility], [place], [id number] , [place] tel: [phone] [facility] No Information 2 Polo Perezwn. [address], [place], [id number] , [place]. tel: [phone] [facility], [facility], [address], [place], [id number] , [place] tel:[phone] [facility] no problems with vision and no complaints (chief complaint)1 (chief complaint) Hypermetropia, bilateralRegular astigmatism, bilateralPresbyopiaS trabismic amblyopia, left eye Mar-2 2 Polo Corrigan. [address] [place], [place], [id number] , [place]. tel: [phone] Referring Provider: Shekhar Ferrer, [address] [place] [address], [address] . tel:[phone] [facility], [address] [place] [address], [id number] , [place] tel: [phone] [facility] blurry vision (chief complaint) Hypermetropia, bilateralPresbyopiaR egular astigmatism, bilateralStrabismic amblyopia, left eyeAge-related nuclear cataract, bilateral Nov-0 1 Polo Corrigan. [address] [place], [place], [id number] , [place]. tel: [phone] [facility], [address] [place] [address], [id number] , [place] tel: [phone] [facility] quite as [facility] (chief complaint) Hypermetropia, bilateralPresbyopiaR egular astigmatism, bilateral Dec-3 0 Polo Corrigan. [address] [place], [place], [id number] , [place]. tel: [phone] [facility], [address] [place] [address], [id number] , [place] tel: [phone] [facility] (chief complaint) Hypermetropia, bilateralPresbyopiaR egular astigmatism, bilateralUnspecified amblyopia, right eyeEncounter for examination of eyes and vision without abnormal findingsDry eye syndrome of bilateral lacrimal glands Dec-0 9 Polo Corrigan. [address], [place], [id number] , [place]. tel: [phone] [facility], [address] [facility], [place], [id number] , [place] tel: [phone] [facility] no change in VA (chief complaint) Hypermetropia, bilateralRegular astigmatism, bilateralPresbyopiaS trabismic amblyopia, left eye Oct-1 8 Polo Shekhar. [address] [facility], [place], [id number] , [place]. tel: [phone] [facility], [address] [facility], [place], [id number] , [place] tel: [phone] [facility] decreased vision (chief complaint) Hypermetropia, bilateral Dec-2 7 Polo Shekhar. [address] [facility], [place], [id number] , [place]. tel: [phone] [facility], [address] [place] [address], [place], [id number] , [place] tel: [phone] [facility] No Information 6 Polo Shekhar. [address] [facility], [place], [id number] , [place]. tel: [phone] [facility], [address] [facility], [facility] [place], [id number] , [place] tel: [phone] [facility] No Information 6 Polo Shekhar. [address] [facility], [place], [id number] , [place]. tel: [phone] [facility], [address] [facility], [place], [id number] , [place] tel: [phone] [facility] blurry vision (chief complaint) PresbyopiaHypermetro opal, bilateralStrabismic amblyopia, left eye Dec-3 5 Polo Shekhar. [address] [facility], [place], [address] , [place]. tel:[phone] [facility], [address], [place], [address] , [place] tel: [phone] [facility] No Information 4 Polo Corrigan. [address], [place], [id number] , [place]. tel: [phone] [facility], [address], [place], [address] , [place] tel: [phone] [facility] No Information 4 Polo Corrigan. [address], [place], [id number] , [place]. tel: [phone] [facility], [address], [place], [address] , [place] tel: [phone] [facility] blurry vision (chief complaint)e ye hx (chief complaint) PresbyopiaDiabetes Mellitus Type 2, Uncomplicated 4 Polo Corrigan. [address], [place], [id number] , [place]. tel: [phone] [facility], [address], [place], [id number] , [place] tel: [phone] [facility] No Information 3 Polo Corrigan. [address], [place], [id number] , [place]. tel: [phone] [facility], [address], [place], [id number] , [place] tel: [phone] [facility] Diabetes Mellitus Type 2, UncomplicatedPresbyo piaHypermetropiaAmbl yopia, unspecifiedOpen angle with borderline glaucoma findings 3 Polo Corrigan. [address], [place], [id number] , [place]. tel: [phone] Referring Provider: Shekhar Ferrer, [address] [place] [address], [address] . tel:[phone] [facility], [address] [place] [address], [address] [place] [address] , tel: [phone] [facility] No Information 3 Polo Corrigan. [address] [place] [address], [address] [place] [address] , [place]. tel: [phone] Referring Provider: Shekhar Ferrer, [address] [place] [address], [id number] . tel:[phone] [facility], [address] [place] [address], [address] [place] [address] , tel: [phone] [facility] No Information 1 Polo Corrigan. [address] [place] [address], [address] [place] [address] , [place]. tel: [phone] [facility], [address] [place] [address], [address] [place] [address] , tel: [phone] [facility] Amblyopia, unspecifiedDiabetes Mellitus Type 2, UncomplicatedHyperme tropiaPresbyopia 1 Polo Corrigan. [address] [place] [address], [address] [place] [address] , [place]. tel: [phone] [facility], [address] [place] [address], [id number] , [place] tel: [phone] [facility] No Information 0 Polo Corrigan. [address] [place] [address], [address] [place] [address] , [place]. tel: [phone] Family History Family Member Type Diagnosis Age At Onset Brother Problem (finding) Amblyopia Problem (finding) Family history of HBP Problem (finding) Family history of catar act Payers Payer name Insurance type Covered green party ID Authoriza tion(s) No Information Social History Type Description Quantity Date Captured Comments Sex Female Smoking Status No Information Chief Complaint And Reason For Visit No Information Reason For Referral Reason For Referral No Information History Of Present Illness Encounter Date Complaint History Of Prese nt Illness 1 The patient liane es COVID-19 symptoms - temperature normal. no problems with vis ion and no complaints The 56 Year old female presents for fu Hypermetropia OU, Presbyopia OU, Astigmatism OU, Strabismic Amblyopia OS and Cats OU. Pt reports no problems with vision and no complaints in the right eye and left eye, since last exam. Vision good, stable and constant D & N c gls.. The patient denies pain or discomfort. Pt uses OTC AT PRN OU. blurry vision The 55 Year old female presents for Yearly f/u for Hyperopia/astigmatism and Presbyopia. Hx of Amblyopia OS. Patient states vision is a little blurry for reading lately. Distance seems adequate. No pain noted.The patient denies COVID-19 symptoms - temperature normal. vision not quite as clear The 54 Year old female presents for vision not quite as clear in the right eye and left eye since last exam. The condition is mild. The patient denies COVID-19 symptoms - temperature normal and pain or discomfort. decreased vision The 53 Year old female presents for Amblyopia OS follow up. Patient reports decreased vision in the right eye and left eye since last exam 1 year ago. The onset was gradual. It affects near vision. It occurs constantly. Distance vision is blurry after reading for awhile. Eyes feel tired and hard to focus at end of day. Some dryness. Started using tears recently with some relief. The patient denies trauma. no change in VA The 52 Year old female presents for eval of VA and amblyopia OS. Pt reports no change in VA in the right eye and left eye. Vision good, stable and constant D & N c gls.. It occurs constantly. The condition is stable. The patient denies pain or discomfort. Pt states she is not diabetic decreased vision The 51 Year old female presents for followup Presbyopia OU. Pt reports of decreased vision in the right eye and left eye since last exam. The onset was gradual. It affects both near and far vision. It occurs constantly. The patient denies pain or discomfort. Pt not using eye meds or art tears OU. blurry vision The 49 Year old female presents for a follow up for presbyopia. Patient complains of blurry vision in the right eye and left eye. It started about 6 month(s) ago. The onset was gradual. It affects near vision. The patient denies pain or discomfort. eye hx Hx of Amblopia O S blurry vision The 48 Year old female presents for yearly follow-up for Hyperopia/presbyopia.Patient feels her vision is blurry the past 6 months for computer work. Even reading and distance vision not as clear. No pain or discomfort. Functional Status Date Functional Assessmen t No Information Instructions Date Instruction Additional Infor radha Impression/Plan Impression/Plan Impression/Plan Impression/Plan Impression/Plan Impression/Plan - OU healthy. No cataracts, glaucoma or mac degen OU. Can update glasses for improved vision. Follow up - Return i n 1 year with [facility] for Refract T & D. Follow up - Return i n 1 year with [facility] for Refract T & D. Impression/Plan - OU healthy. No cataracts, diabetic changes, glaucoma or mac degen changes seen in either eye. Can update glasses. Recommend updating bifocal power. Can get a seperate pair of glasses for computer to help with eye strain. Impression/Plan - Th ere is no Diabetic Retinopathy. Eyes are healthy. No glaucoma or mac degen. OK to use todays MR for new glasses. May benefit from a pair of glasses to use for just the computer since spending so much time every day. Can try artificial tears also for dryness and straining feeling toward the end of the day. Follow up - Return i n 1 year with [facility] for Refract T & D. Diab. Mon. OU. Condi tion: established, stable. Presbyopia OU. Condition: established, stable. Hypermetropia OU. Condition: established, stable. Amblyopia, unspecified OS. Condition: established, stable. 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 IOP OU a little higher. also see a heme on optic nerve. Will continue to monitor. Will take photo of today. Can update glasses today. OU: Discussed diagnosis in detail with patient. New glasses Rx was given today. Related to Open angle with borderline glaucoma findings - Return in 2 weeks with [facility] for OCT (ON). Pachy tension Related to Open angle with borderline glaucoma findings Amblyopia, unspecifi ed OS Condition: established, stable. Diab. Mon. OU Condition: established, stable. Hypermetropia OU Condition: established, stable. Presbyopia OU Condition: established, stable. - Eyes healthy ou. No cat, no glauc., no mac. degen., no DR OU. Can update gls. rx if pt. elects. Discussed os turning in. Can have Dr. Squires look at and evaluate. Related to Presbyopia - Return in 1 year w [facility] for Ref T & D. Related to Presbyopia Assessments Type Assessment Date No Information Patient Care Teams Name Effective Dates (start - stop) Status Members No Information
--- NOTE | ~2025-06-10 | CT_ITS ---
EXAMINATION:CT chest high resolution wo co DATE: 06/10/2025 10:49 INDICATION: Chronic cough. TECHNIQUE: Computed tomography (CT) of the chest was performed without intravenous contrast. Automated exposure control and iterative reconstruction technique were employed. High resolution CT of the lungs were obtained with post processing, including inspiration and expiration. The dose-length product (DLP) was 314.69 mGy-cm. COMPARISON: Chest x-ray 2 views dated 08/27/2024. FINDINGS: Benign calcified granuloma in the right upper lobe. No significant interstitial lung disease. Benign calcified lymph nodes of the right hilum. No pleural or pericardial effusion. No evidence of bronchiectasis. Small hiatus hernia. 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 IMPRESSION: 1. No significant interstitial lung disease, bronchiectasis or effusion. No significant emphysema. 2. No evidence of lymphadenopathy. Benign calcified granuloma right lung, right hilum. Reviewed, dictated and finalized at location [facility] IMPRESSION: 1. No significant interstitial lung disease, bronchiectasis or effusion. No sig nificant emphysema. 2. No evidence of lymphadenopathy. Benign calcified granuloma right lung, right hilum.
--- OUTSIDE RECORDS SUMMARY | 2025-06-10 12:26 | XMS_ITS | Clinical Summary ---
Author Organization [facility] Address [address] [place] [address] Care Team Providers Care Biomass Boiler Operator Name Role Phone Dami Naranjo MD Primary Care Provider [phone] Allergies Active Allergy Reactions Criticality Noted Date [...] Sex Assigned at Female 08/01/2024 8:02 PM FABRIC WORKER SUPERVISOR Legal Sex Female 7:39 PM FABRIC WORKER SUPERVISOR Gender Identity Female 08/01/2024 8:02 PM FABRIC WORKER SUPERVISOR Sexual Orientation Not on file Last Filed Vital Signs Vital Sign Reading Time Taken Comments Blood Pressure 166/102 08/01/2024 7:59 PM FABRIC WORKER SUPERVISOR Pulse 86 08/01/2024 7:59 PM FABRIC WORKER SUPERVISOR Temperature 36.7 C (98 F) 08/01/2024 7:59 PM FABRIC WORKER SUPERVISOR Respiratory Rate 16 08/01/2024 7:59 PM FABRIC WORKER SUPERVISOR Oxygen Saturation 95% 08/01/2024 7:59 PM FABRIC WORKER SUPERVISOR Inhaled Oxygen Concentration - - Weight 102.1 kg (225 lb) 08/01/2024 7:59 PM FABRIC WORKER SUPERVISOR Height 157.5 cm (5' 2) 08/01/2024 7:59 PM FABRIC WORKER SUPERVISOR Body Mass Index 41.15 08/01/2024 7:59 PM FABRIC WORKER SUPERVISOR Plan of Treatment Health Maintenance Due Date [...] patient's age to complete this topic Insurance [facility] [place] Care Teams Biomass Boiler Operator Relationship Specialty Start Date End Date Dami Naranjo MD [address] [place] [address] PCP - General FAMILY PRACTICE 08/01/24
== END 2025-06-10 10:38 | disposition home or self-care (01) ==
LOC: ANHIMG 10:37
PROVIDERS: PCP Family Medicine; Visit Provider Nurse Practitioner Family
DX: J42 Unspecified chronic bronchitis (principal); R05.3 Chronic cough; J84.10 Pulmonary fibrosis, unspecified
CPT/HCPCS: 71250